=== PATIENT | female | born 1975 | race Caucasian/White ===

== ENCOUNTER → 2017-02-04 | Day surgery (SDC) | payer BC, SELFPAY ==
[~2017-02-04] MED LIST: Lactated Ringers 1,000 ML IV SCH; Propofol 200 MG/20 ML SDV IV ONE
[2017-02-04 11:16] VITALS: BP 113/68
--- NOTE | 2017-02-04 14:47 | OR ---
DATE OF OPERATION: 02/04/2017 PREOPERATIVE DIAGNOSIS: GASTROESOPHAGEAL REFLUX DISEASE WITH DYSPHAGIA. POSTOPERATIVE DIAGNOSIS: GASTROESOPHAGEAL REFLUX DISEASE WITH DYSPHAGIA. SURGEON: Cabrera Farley MD PROCEDURE: ESOPHAGOGASTRODUODENOSCOPY WITH BIOPSIES X3, MICHELLE. 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 COMPLICATIONS: None. SPECIMEN: 1. Duodenal biopsy x1. 2. Antral biopsy x1. 3. Antral MICHELLE. 4. Distal esophageal biopsy x1. FINDINGS: 1. Full-length EGD. 2. Mild hiatal hernia with reflux esophagitis, grade 1. 3. Minimal antral gastritis with duodenitis. RECOMMENDATIONS: Medical followup with Tootie Roldan PA-C. INDICATIONS: The patient has been having some reflux issues and occasional dysphagia. Tootie sent her for EGD. DESCRIPTION OF PROCEDURE: The patient was prepped and draped, placed in the left lateral decubitus position. A lubricated Olympus gastroscope was inserted over a bit, advanced the cricopharyngeus area, and easily intubated in the esophagus. Esophageal lining was benign in its entire course until its most distal portion. There was a mild sized hiatal hernia present with spontaneous reflux. There was some linear esophagitis grade 1 with no obvious ulceration or bleeding. Biopsy of that area was taken. No signs of Owusu's changes stricturing. Hernia is mild in size. The scope was easily passed into the stomach through the pylorus into the second portion of duodenum. The duodenal bulb itself has made some very mild inflammation. No evidence of ulceration or erosion. Biopsy was taken for confirmation. The scope was brought back into the stomach and retroflexed. The upper fundus and cardia were unremarkable other than easy visualization of the hernia from below. Upon straightening, the rest of the fundus was benign. There was a small amount of slight erythema into the distal antrum near the pylorus, possibly representing some gastritis change. We did do a biopsy. No other ulcerations, polyps, masses, or bleeding sites were seen. A CLOtest was obtained. Air was then suctioned. The scope was removed without complication. NELLIE/THELMA /[id number]
== END ==
LOC: CC.SDS 09:52
PROVIDERS: ATTEND Family Medicine
DX: K31.89 Other diseases of stomach and duodenum (principal); K20.8 Other esophagitis; K21.9 Gastro-esophageal reflux disease without esophagitis; K44.9 Diaphragmatic hernia without obstruction or gangrene; F41.9 Anxiety disorder, unspecified; F32.9 Major depressive disorder, single episode, unspecified; M19.90 Unspecified osteoarthritis, unspecified site; M54.9 Dorsalgia, unspecified; G89.29 Other chronic pain; E87.6 Hypokalemia; K58.9 Irritable bowel syndrome, unspecified; G43.909 Migraine, unspecified, not intractable, without status migrainosus; E03.9 Hypothyroidism, unspecified; E78.1 Pure hyperglyceridemia; E66.9 Obesity, unspecified; Z87.442 Personal history of urinary calculi; Z79.890 Hormone replacement therapy; Z79.899 Other long term (current) drug therapy; Z88.0 Allergy status to penicillin; Z88.1 Allergy status to other antibiotic agents; Z88.6 Allergy status to analgesic agent; Z90.710 Acquired absence of both cervix and uterus; Z98.890 Other specified postprocedural states; Z68.33 Body mass index [BMI] 33.0-33.9, adult
CPT/HCPCS: 43239; 87081; J2704; J7120

== ENCOUNTER 2018-02-11 18:06 | Emergency (ER) | payer BC, OTHER ==
[2018-02-11 18:14] VITALS: BP 142/71
[2018-02-11] MEDS ORDERED: Ketorolac 60 MG/2 ML SDV IM ONE (18:34)
--- NOTE | 2018-02-11 19:21 | EDM.PDOC ---
ED HPI GENERAL MEDICAL PROBLEM - General Chief Complaint: Lower Extremity Injury/Pain Stated Complaint: Knee pain Time Seen by Provider: 02/11/18 18:15 Source of Information: Reports: Patient History Limitations: Reports: No Limitations - History of Present Illness INITIAL COMMENTS - FREE TEXT/NARRATIVE: Patient presents today with complaints of muscle spasms to left leg. Had total knee replacement 2 1/2 weeks ago and had been doing fairly well. Had graduated to PT 3 times per week this week and was doing well. She states she started having terrible muscle spasms this am that start in her foot and radiate up to her thigh. She had a friend who is a therapist come and do stretching exercises on her leg. Has tried her Flexeril, Dilaudid, Tramadol, heat and ice without much relief. She called down to [facility] to the ask a nurse and they called ortho and they recommended she come to the ER. Onset: Today, Gradual Duration: Hour(s):, Waxing/Waning Location: Reports: Lower Extremity, Left Quality: Reports: Sharp Severity: Severe Improves with: Reports: None Worsens with: Reports: Movement Associated Symptoms: Reports: No Other Symptoms Treatments GAS PUMP ATTENDANT: Reports: Cold Therapy, Home Treatments, Other Medication(s) Other Treatments GAS PUMP ATTENDANT: dilaudid, flexeril, tramadol Left Leg Pain Score (Numeric/FACES): 9 - Related Data Allergies Allergy/AdvReac Type Severity Reaction Status Date / Time amoxicillin Allergy Cannot Verified 02/11/18 18:15 Remember hydrocodone bitartrate Allergy Fainting Verified 02/11/18 18:15 [From Vicoprofen] ibuprofen [From Vicoprofen] Allergy Fainting Verified 02/11/18 18:15 levofloxacin [From Levaquin] Allergy Rash Verified 02/11/18 18:15 metronidazole [From Flagyl] Allergy Cannot Verified 02/11/18 18:15 Remember Metronidazole HCl Allergy Cannot Verified 02/11/18 18:15 [From Flagyl] Remember Home Meds: Home Meds Cholecalciferol (Vitamin D3) [Vitamin D] 5,000 unit PO DAILY 09/20/13 [History] Cyclobenzaprine [Flexeril] 10 mg PO TID PRN 09/20/13 [History] Furosemide 40 mg PO BID 09/20/13 [History] clonazePAM [Clonazepam] 1 mg PO BEDTIME 09/20/13 [History] Estradiol [Estrace] 2 mg PO DAILY 02/03/17 [History] Potassium Chloride 20 meq PO DAILY 02/03/17 [History] Butalb/Acetaminophen/Caffeine [Eofzez-Nklticqz-Zmoq 50-300-40] 1 each PO ASDIRECTED PRN 01/03/18 [History] Desvenlafaxine [Desvenlafaxine ER] 50 mg PO DAILY 01/03/18 [History] HYDROmorphone [Dilaudid] 4 mg PO Q4H PRN 02/11/18 [History] traMADol [Ultram] 50 mg PO Q6H PRN 02/11/18 [History] Past Medical History Gastrointestinal History: Reports: GERD Genitourinary History: Reports: Renal Calculus 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 Musculoskeletal History: Reports: Arthritis, Back Pain, Chronic, Osteoarthritis Neurological History: Reports: Migraines - Past Surgical History HEENT Surgical History: Reports: Naso-Sinus Surgery GI Surgical History: Reports: Cholecystectomy Female Surgical History: Reports: Hysterectomy, Other (See Below) Other Female Surgeries/Procedures: lithotripsy for kidney stones Musculoskeletal Surgical History: Reports: Arthroscopic Knee, Joint Replacement , Other (See Below) Other Musculoskeletal Surgeries/Procedures:: L knee replacement Social & Family History - Tobacco Use Smoking Status *Q: Never Smoker - Living Situation & Occupation Living situation: Reports: Occupation: Employed Review of Systems - Review of Systems Review Of Systems: See Below Constitutional: Reports: Weakness. Denies: Chills, Fever Eyes: Reports: No Symptoms Ears: Reports: No Symptoms Nose: Reports: No Symptoms Mouth/Throat: Reports: No Symptoms Respiratory: Denies: Shortness of Breath, Cough Cardiovascular: Denies: Chest Pain, Palpitations, Syncope GI/Abdominal: Denies: Abdominal Pain, Nausea, Vomiting Genitourinary: Reports: No Symptoms Musculoskeletal: Reports: Leg Pain, Joint Pain, Muscle Pain Skin: Reports: Bruising Neurological: Reports: No Symptoms ED EXAM, GENERAL - Physical Exam Exam: See Below Exam Limited By: No Limitations General Appearance: Alert, WD/WN, Moderate Distress Neck: Normal Inspection, Supple, Non-Tender Respiratory/Chest: No Respiratory Distress, Lungs Clear, Normal Breath Sounds Cardiovascular: Regular Rate, Rhythm Extremities: Other (Left knee is swollen, incision is healing well. Has healing bruises to leg, new areas of darker bruising noted to calf. Pain with palpation to lateral and medial knee. ) Neurological: Alert, Oriented Course - Vital Signs Last Recorded V/S: Last Vital Signs Temp 96.9 F 02/11/18 18:07 Pulse 113 H 02/11/18 18:07 Resp 18 02/11/18 18:07 BP 142/71 H 02/11/18 18:07 Pulse Ox 100 02/11/18 18:07 - Orders/Labs/Meds Meds: Medications Discontinued Medications Generic Name Dose Route Start Last Admin Trade Name Annmarie PRN Reason Stop Dose Admin Ketorolac Tromethamine 60 mg 02/11/18 18:34 02/11/18 18:40 Toradol IM 02/11/18 18:35 60 mg ONETIME ONE Administration Orphenadrine Citrate 60 mg 02/11/18 18:35 02/11/18 18:40 Norflex IM 02/11/18 18:36 60 mg NOW ONE Administration - Re-Assessments/Exams Free Text/Narrative Re-Assessment/Exam: 02/11/18 contacted [facility] and spoke with Dr. Campbell. He recommended to ice or heat and elevate. Rest knee, feels she may have been overdid it yesterday. Should expect to improve over the next day or 2 with her current meds and rest. 1935- Is doing better, still has some pain but more tolerable now. Departure - Departure Time of Disposition: 19:19 Disposition: Home, Self-Care 01 Condition: Good Clinical Impression: Left knee pain Qualifiers: Chronicity: acute Qualified Code(s): M25.562 - Pain in left knee S/P total knee replacement Qualifiers: Laterality: left Qualified Code(s): Z96.652 - Presence of left artificial knee joint - Discharge Information *PRESCRIPTION DRUG MONITORING PROGRAM REVIEWED*: No *COPY OF PRESCRIPTION DRUG MONITORING REPORT IN PATIENT HANNAH: No Referrals: Tootie Roldan PA [Primary Care Provider] - Forms: ED Department Discharge Additional Instructions: 1. Rest knee 2. Elevate 3. Ice or heat for discomfort 4. Continue Flexeril 5. Dilaudid for pain 6. Contact Dr. Foster's office on Tuesday for ongoing pain
== END 2018-02-11 19:40 | disposition home or self-care (01) ==
LOC: CC.ED 18:06
DX: M25.562 Pain in left knee (principal); Z96.652 Presence of left artificial knee joint; Z88.1 Allergy status to other antibiotic agents; Z79.899 Other long term (current) drug therapy
CPT/HCPCS: 96372; 99283; J1885; J2360

== ENCOUNTER 2018-06-16 10:37 | Emergency (ER) | payer BC, OTHER, SELFPAY ==
[2018-06-16] MEDS ORDERED: Sodium Chloride 0.9% 1,000 ML IV ONE (10:59)
[2018-06-16] MEDS ORDERED: Ketorolac 30 MG/ML SDV IVPUSH ONE (10:59)
[2018-06-16] MEDS ORDERED: Ondansetron 4 MG/2 ML SDV IVPUSH ONE (11:00)
--- NOTE | 2018-06-16 11:05 | EDM.PDOC ---
ED HPI GENERAL MEDICAL PROBLEM - General Time Seen by Provider: 06/16/18 10:55 Source of Information: Reports: Patient, Old Records - History of Present Illness INITIAL COMMENTS - FREE TEXT/NARRATIVE: Malu is a 43 year old female who presents to the clinic with c/o right flank pain. She was seen in the clinic 06/12/2017 and found to have 2.2 mm kidney stone. Reports she was given Flomax and has been using Tramadol for pain. Reports she has been uncomfortable the past week but pain worsened significantly about 0730 this morning. Reports pain had previously been intermittent but is now constant sharp pain that radiates around to her abdomen. Rates pain 10/10. She is tearful at time of presentation. Reports she is also nauseated. Has not vomited as of yet. Denies any fever, chills, dysuria , frequency, urgency. Has not noticed any gross hematuria. Right Flank Pain Score (Numeric/FACES): 10 - Related Data Allergies Allergy/AdvReac Type Severity Reaction Status Date / Time amoxicillin Allergy Cannot Verified 06/16/18 10:53 Remember hydrocodone bitartrate Allergy Fainting Verified 06/16/18 10:53 [From Vicoprofen] ibuprofen [From Vicoprofen] Allergy Fainting Verified 06/16/18 10:53 levofloxacin [From Levaquin] Allergy Rash Verified 06/16/18 10:53 metronidazole [From Flagyl] Allergy Cannot Verified 06/16/18 10:53 Remember Metronidazole HCl Allergy Cannot Verified 06/16/18 10:53 [From Flagyl] Remember Home Meds: Home Meds Cholecalciferol (Vitamin D3) [Vitamin D] 5,000 unit PO DAILY 09/20/13 [History] Cyclobenzaprine [Flexeril] 10 mg PO TID PRN 09/20/13 [History] Furosemide 40 mg PO BID 09/20/13 [History] clonazePAM [Clonazepam] 1 mg PO BEDTIME 09/20/13 [History] Estradiol [Estrace] 2 mg PO DAILY 02/03/17 [History] Potassium Chloride 20 meq PO DAILY 02/03/17 [History] Butalb/Acetaminophen/Caffeine [Evqmba-Dgemwmus-Gevv 50-300-40] 1 each PO ASDIRECTED PRN 01/03/18 [History] Desvenlafaxine [Desvenlafaxine ER] 50 mg PO DAILY 01/03/18 [History] HYDROmorphone [Dilaudid] 4 mg PO Q4H PRN 02/11/18 [History] traMADol [Ultram] 50 mg PO Q6H PRN 02/11/18 [History] Past Medical History Gastrointestinal History: Reports: GERD Genitourinary History: Reports: Renal Calculus 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 Musculoskeletal History: Reports: Arthritis, Back Pain, Chronic, Osteoarthritis Neurological History: Reports: Migraines - Past Surgical History HEENT Surgical History: Reports: Naso-Sinus Surgery GI Surgical History: Reports: Cholecystectomy Female Surgical History: Reports: Hysterectomy, Other (See Below) Other Female Surgeries/Procedures: lithotripsy for kidney stones Musculoskeletal Surgical History: Reports: Arthroscopic Knee, Joint Replacement , Other (See Below) Other Musculoskeletal Surgeries/Procedures:: L knee replacement Social & Family History - Living Situation & Occupation Living situation: Reports: Occupation: Employed ED ROS GENERAL - Review of Systems Review Of Systems: See Below Constitutional: Reports: Decreased Appetite. Denies: Fever, Chills Respiratory: Reports: No Symptoms. Denies: Shortness of Breath, Cough Cardiovascular: Reports: No Symptoms. Denies: Chest Pain, Dyspnea on Exertion Endocrine: Reports: No Symptoms GI/Abdominal: Reports: Abdominal Pain, Nausea. Denies: Diarrhea, Vomiting : Reports: Flank Pain (right). Denies: Dysuria, Frequency, Hematuria, Incontinence, Urgency Musculoskeletal: Reports: No Symptoms Skin: Reports: No Symptoms Neurological: Reports: No Symptoms ED EXAM, RENAL/ - Physical Exam Exam: See Below Exam Limited By: No Limitations General Appearance: Alert, WD/WN, Moderate Distress Head: Atraumatic, Normocephalic Neck: Normal Inspection, Supple, Non-Tender, Full Range of Motion Respiratory/Chest: No Respiratory Distress, Lungs Clear, Normal Breath Sounds, No Accessory Muscle Use, Chest Non-Tender Cardiovascular: Normal Peripheral Pulses, Regular Rate, Rhythm, No Edema, No Gallop, No JVD, No Murmur, No Rub GI/Abdominal: Normal Bowel Sounds, Soft, Tender (right suprapubic area). No: Guarding, Rigid, Rebound Back Exam: Normal Inspection, Full Range of Motion, CVA Tenderness (R) Extremities: Normal Inspection, Normal Range of Motion, Non-Tender, Normal Capillary Refill, No Pedal Edema Neurological: Alert, Oriented, CN II-XII Intact, Normal Cognition, Normal Gait, Normal Reflexes, No Motor/Sensory Deficits Psychiatric: Tearful Course - Vital Signs Last Recorded V/S: Last Vital Signs Temp 97.5 F 06/16/18 11:47 Pulse 69 06/16/18 11:47 Resp 20 06/16/18 11:47 BP 145/83 H 06/16/18 11:47 Pulse Ox 100 06/16/18 11:47 - Orders/Labs/Meds Labs: Laboratory Tests 06/16/18 06/16/18 06/16/18 Range/Units 11:15 11:15 11:43 WBC 5.7 (5.0-10.0) 10^3/uL RBC 4.48 (4.00-5.50) 10^6/uL Hgb 12.6 (12.0-16.0) g/dL Hct 39.3 (37.0-47.0) % MCV 87.7 (82.0-94.0) fL MCH 28.1 (27.0-32.0) pg MCHC 32.1 L (33.0-38.0) g/dL RDW Coeff of Anupama 15.1 H (11.0-15.0) % Plt Count 260 (150-400) 10^3/uL Neut % (Auto) 48.0 (35-85) % Lymph % (Auto) 43.2 (10-55) % [place] % (Auto) 7.1 (0-16) % Eos % (Auto) 1.2 (0-5) % Baso % (Auto) 0.5 (0-3) % Neut # (Auto) 2.75 (1.80-7.00) 10^3/uL Lymph # (Auto) 2.48 (1.00-4.80) 10^3/uL [place] # (Auto) 0.41 (0.00-0.80) 10^3/uL Eos # (Auto) 0.07 (0.00-0.45) 10^3/uL Baso # (Auto) 0.03 10^3/uL Sodium 142 (136-145) mEq/L Potassium 3.4 L D (3.5-5.0) mEq/L Chloride 104 (98-106) mEq/L Carbon Dioxide 30 (21-32) mmol/L BUN 11 (7-18) mg/dL Creatinine 0.6 (0.6-1.0) mg/dL Est Cr Clr Drug Dosing TNP Estimated GFR (MDRD) > 60 (>=60) mL/min Glucose 107 H (75-99) mg/dL Calcium 8.3 L (8.4-10.1) mg/dL C-Reactive Protein 0.9 H (0.2-0.8) mg/dL Urine Color Dark yellow (YELLOW) Urine Appearance Cloudy (CLEAR) Urine pH 6.0 (4.5-8.0) Ur Specific [place] 1.025 H (1.003-1.020) Urine Protein Negative (NEGATIVE) mg/dL Urine Glucose (UA) Negative (NEGATIVE) mg/dL Urine Ketones Negative (NEGATIVE) mg/dL Urine Occult Blood Large H (NEGATIVE) Urine Nitrite Negative (NEGATIVE) Urine Bilirubin Negative (NEGATIVE) Urine Urobilinogen 0.2 (0.2-1.0) EU/dL Ur Leukocyte Esterase Negative (NEGATIVE) Urine RBC 50-75 H (0-5) /HPF Urine WBC Not seen (0-5) /HPF Urine Bacteria Occasional H (NOT SEEN) /HPF Meds: Medications Discontinued Medications Generic Name Dose Route Start Last Admin Trade Name Annmarie PRN Reason Stop Dose Admin Fentanyl 25 mcg 06/16/18 11:53 06/16/18 12:02 Sublimaze IVPUSH 06/16/18 11:54 25 mcg ONETIME ONE Administration Sodium Chloride 1,000 mls @ 999 mls/hr 06/16/18 10:59 06/16/18 11:07 Normal Saline IV 06/16/18 11:59 999 mls/hr .BOLUS ONE Administration Ketorolac Tromethamine 30 mg 06/16/18 10:59 06/16/18 11:08 Toradol IVPUSH 06/16/18 11:00 30 mg ONETIME ONE Administration Ondansetron HCl 4 mg 06/16/18 11:00 06/16/18 11:08 Zofran IVPUSH 06/16/18 11:01 4 mg Q6H ONE Administration - Re-Assessments/Exams Free Text/Narrative Re-Assessment/Exam: 06/16/18 11:53 Patient reports some improvement in pain. Continues to rate pain 6/10. Nausea improved. 06/16/18 12:25 Patient reports significant improvement in pain after fentanyl. Discussed discharge recommendations with patient. Departure - Departure Time of Disposition: 12:26 Disposition: Home, Self-Care 01 Condition: Fair Clinical Impression: Ureteric colic, Ureterolithiasis - Discharge Information *PRESCRIPTION DRUG MONITORING PROGRAM REVIEWED*: Not Applicable *COPY OF PRESCRIPTION DRUG MONITORING REPORT IN PATIENT HANNAH: Not Applicable Instructions: Kidney Stones, [id number] Referrals: Tong Langley PA-C [Physician Knockout Worker] - Forms: ED Department Discharge Additional Instructions: Flomax daily x 4 weeks Toradol every 6 hours as needed for pain. Alternate with 1000 mg Tylenol. Heat to affected area as needed for comfort Follow up with PCP if symptoms worsen or do not improve over the next few weeks
[2018-06-16 11:26] LABS: CHLORIDE,CL 104 mEq/L (98-106); SODIUM,NA 142 mEq/L (136-145)
[2018-06-16] MEDS ORDERED: fentaNYL 100 MCG/2 ML SDV IVPUSH ONE (11:53)
[2018-06-16 11:55] VITALS: BP 145/83
== END 2018-06-16 12:38 | disposition home or self-care (01) ==
LOC: CC.ED 10:37
DX: N20.1 Calculus of ureter (principal); Z88.1 Allergy status to other antibiotic agents; Z88.6 Allergy status to analgesic agent; Z88.8 Allergy status to other drugs, medicaments and biological substances; Z79.899 Other long term (current) drug therapy; K21.9 Gastro-esophageal reflux disease without esophagitis
CPT/HCPCS: 36415; 80048; 81001; 85025; 86140; 96361; 96374; 96375; 99284; J1885; J2405; J3010; J7030

== ENCOUNTER → 2019-04-06 | Day surgery (SDC) | payer BC ==
[~2019-04-06] MED LIST changes: +Lidocaine 1% 20 ML MDV ONE; +Midazolam 1 MG/ML 2 ML SDV IV ONE; +Midazolam 1 MG/ML 2 ML SDV ONE; -Propofol 200 MG/20 ML SDV IV ONE; +fentaNYL 100 MCG/2 ML SDV ONE
--- NOTE | 2019-04-06 15:25 | OR ---
DATE OF OPERATION: 04/06/2019 PREOPERATIVE DIAGNOSIS: CHRONIC SCALP LESION. POSTOPERATIVE DIAGNOSIS: CHRONIC SCALP LESION. SURGEON: Evangelista Pierce MD PROCEDURE: WIDE ELLIPTICAL INCISION OF SCALP LESION. ANESTHESIA: Local plus conscious sedation. SPECIMEN: Scalp lesion. INDICATIONS: This 44-year-old female has had a chronic scalp lesion that had two incision and drainage procedures before. It still has a tender soft spongy area around this. I could not aspirate any of this, this is not fluid containing. The patient complains that this is quite tender to touch and has not healed since the last incision and drainage. DESCRIPTION OF PROCEDURE: After adequate preparation with 2 mg of Versed IV, 1% Xylocaine was used to infiltrate an area of the scalp. An elliptical incision was made around this ill-defined area within that had been previously scarred. This elliptical incision measured 1.5 cm x 0.75 cm. This incision was carried down vertically into the subcutaneous tissue and all the tissue was taken out down to the aponeurosis fascia. There was some arterial bleeding. This was controlled by [id number] 2-0 nylon sutures in a tamponade fashion. The elliptical incision specimen was sent for pathological evaluation. BPGavin/THELMA /[id number]
[2019-04-06 15:54] VITALS: BP 114/67; PULSE 69
== END ==
LOC: CC.SDS 13:03
PROVIDERS: ATTEND Surgery
DX: L28.0 Lichen simplex chronicus (principal); L91.0 Hypertrophic scar; Z79.899 Other long term (current) drug therapy
CPT/HCPCS: 11422; 36415; 82306; J2250; J7120

== ENCOUNTER 2019-04-15 05:42 | Emergency (ER) | payer BC, OTHER ==
[2019-04-15 05:50] VITALS: BP 128/79; PULSE 80
[2019-04-15] MEDS ORDERED: Ketorolac 30 MG/ML SDV IVPUSH ONE (06:04)
[2019-04-15] MEDS ORDERED: Metoclopramide 10 MG/2 ML SDV IVPUSH ONE (06:06)
[2019-04-15] MEDS ORDERED: diphenhydrAMINE 50 MG/ML SDV IVPUSH ONE (06:06)
--- NOTE | 2019-04-15 06:13 | EDM.PDOC ---
ED HPI GENERAL MEDICAL PROBLEM - General Chief Complaint: General Stated Complaint: migraine Time Seen by Provider: 04/15/19 05:55 Source of Information: Reports: Patient History Limitations: Reports: No Limitations - History of Present Illness INITIAL COMMENTS - FREE TEXT/NARRATIVE: in with c/o left side typical migraine rossi, has some nausea, no vomiting, light does make the rossi worse, no ear, nose or throat sx, no neck/back pain or stiffness, no fever or chills, no cp or sob, no palpitations or irregular heart beat, no calf pain, redness or swelling, no abd pain Onset: Gradual, Other (tuesday) Duration: Day(s): Location: Reports: Head Quality: Reports: Ache Severity: Moderate Improves with: Reports: None Worsens with: Reports: None Associated Symptoms: Reports: Headaches, Nausea/Vomiting. 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: Reports: Other (see below) Left Headache Pain Score (Numeric/FACES): 10 - Related Data Allergies Allergy/AdvReac Type Severity Reaction Status Date / Time amoxicillin Allergy Diarrhea Verified 04/15/19 05:58 hydrocodone bitartrate Allergy Fainting Verified 04/15/19 05:58 [From Vicoprofen] ibuprofen [From Vicoprofen] Allergy Fainting Verified 04/15/19 05:58 levofloxacin [From Levaquin] Allergy Anaphylactic Verified 04/15/19 05:58 Shock metronidazole [From Flagyl] Allergy Cannot Verified 04/15/19 05:58 Remember Metronidazole HCl Allergy Cannot Verified 04/15/19 05:58 [From Flagyl] Remember Home Meds: Home Meds Cholecalciferol (Vitamin D3) [Vitamin D] 5,000 unit PO DAILY 09/20/13 [History] Cyclobenzaprine [Flexeril] 10 mg PO TID PRN 09/20/13 [History] Furosemide 40 mg PO BID 09/20/13 [History] clonazePAM [Clonazepam] 1 mg PO BEDTIME 09/20/13 [History] Estradiol [Estrace] 2 mg PO DAILY 02/03/17 [History] Potassium Chloride 20 meq PO DAILY 02/03/17 [History] Butalb/Acetaminophen/Caffeine [Yabuyb-Lhrijftg-Sdts 50-300-40] 1 each PO ASDIRECTED PRN 01/03/18 [History] Desvenlafaxine [Desvenlafaxine ER] 50 mg PO DAILY 01/03/18 [History] Ketorolac [Toradol] 10 mg PO Q6H PRN #20 tab 06/16/18 [Rx] Ondansetron [Zofran] 8 mg PO Q6H PRN #20 tab 06/16/18 [Rx] DULoxetine [Cymbalta] 60 mg PO DAILY 04/06/19 [History] Past Medical History Gastrointestinal History: Reports: GERD Genitourinary History: Reports: Renal Calculus 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 Musculoskeletal History: Reports: Arthritis, Back Pain, Chronic, Osteoarthritis Neurological History: Reports: Migraines - Past Surgical History HEENT Surgical History: Reports: Naso-Sinus Surgery GI Surgical History: Reports: Cholecystectomy Female Surgical History: Reports: Hysterectomy, Other (See Below) Other Female Surgeries/Procedures: lithotripsy for kidney stones Musculoskeletal Surgical History: Reports: Arthroscopic Knee, Joint Replacement , Other (See Below) Other Musculoskeletal Surgeries/Procedures:: L knee replacement Social & Family History - Tobacco Use Smoking Status *Q: Never Smoker - Caffeine Use Caffeine Use: Reports: Soda - Recreational Drug Use Recreational Drug Use: No - Living Situation & Occupation Living situation: Reports: Occupation: Employed ED ROS GENERAL - Review of Systems Review Of Systems: See Below Constitutional: Reports: No Symptoms. Denies: Fever, Chills HEENT: Reports: No Symptoms. Denies: Ear Pain, Nose Pain, Throat Pain Respiratory: Reports: No Symptoms. Denies: Shortness of Breath, Cough Cardiovascular: Reports: No Symptoms. Denies: Chest Pain, Lightheadedness, Palpitations, Syncope GI/Abdominal: Reports: Nausea. Denies: Abdominal Pain, Vomiting : Reports: No Symptoms Musculoskeletal: Reports: No Symptoms. Denies: Neck Pain, Back Pain Skin: Reports: No Symptoms. Denies: Rash, Erythema Neurological: Reports: Headache. Denies: Confusion, Dizziness, Syncope, Difficulty Walking, Change in Speech, Gait Disturbance Psychiatric: Reports: No Symptoms ED EXAM, GENERAL - Physical Exam Exam: See Below Exam Limited By: No Limitations General Appearance: Alert, WD/WN, No Apparent Distress Eye Exam: Bilateral Eye: EOMI Ears: Normal External Exam, Normal Canal, Hearing Grossly Normal, Normal TMs Ear Exam: Bilateral Ear: Auricle Normal, Canal Normal, TM normal Nose: Normal Inspection, Normal Mucosa Throat/Mouth: Normal Inspection, Normal Lips, Normal Oropharynx, Normal Voice, No Airway Compromise Head: Atraumatic, Normocephalic Neck: Normal Inspection, Supple, Non-Tender, Full Range of Motion Respiratory/Chest: No Respiratory Distress, Lungs Clear, Normal Breath Sounds Cardiovascular: Normal Peripheral Pulses, Regular Rate, Rhythm, No Murmur Peripheral Pulses: 2+: Radial (L) Back Exam: Normal Inspection, Full Range of Motion Extremities: Normal Inspection, Normal Range of Motion, Non-Tender, Normal Capillary Refill Neurological: Alert, Oriented, CN II-XII Intact, Normal Cognition, Normal Gait, No Motor/Sensory Deficits Psychiatric: Normal Affect, Normal Mood Skin Exam: Warm, Dry, Intact, Normal Color Course - Vital Signs Text/Narrative:: the pt was evaluated in the ED, the pt has her typical migraine ROSSI, no changes from normal, the pt was given a typical migraine cocktail with relief of her sx , the pt dc to f/u with pcp this week, and advised to return to ER sooner if worse or problems Last Recorded V/S: Last Vital Signs Temp 35.6 C 04/15/19 05:45 Pulse 80 04/15/19 05:45 Resp 18 04/15/19 05:45 BP 128/79 04/15/19 05:45 Pulse Ox - Orders/Labs/Meds Meds: Medications Discontinued Medications Generic Name Dose Route Start Last Admin Trade Name Freq PRN Reason Stop Dose Admin Diphenhydramine HCl 25 mg 04/15/19 06:06 04/15/19 06:21 Benadryl IVPUSH 04/15/19 06:07 25 mg ONETIME ONE Administration Ketorolac Tromethamine 30 mg 04/15/19 06:04 04/15/19 06:20 Toradol IVPUSH 04/15/19 06:05 30 mg ONETIME ONE Administration Metoclopramide HCl 10 mg 04/15/19 06:06 04/15/19 06:25 Reglan IVPUSH 04/15/19 06:07 10 mg ONETIME ONE Administration Departure - Departure Time of Disposition: 06:43 Disposition: Home, Self-Care 01 Condition: Good Clinical Impression: Migraine headache - Discharge Information *PRESCRIPTION DRUG MONITORING PROGRAM REVIEWED*: Not Applicable *COPY OF PRESCRIPTION DRUG MONITORING REPORT IN PATIENT HANNAH: Not Applicable Instructions: Migraine Headache, [id number] Referrals: Tootie Roldan PA [Primary Care Provider] - Forms: ED Department Discharge Additional Instructions: rest increase fluids follow up with your family doctor this week, call Tuesday am for an appointment time return to the ER sooner if worse or problems - Problem List & Annotations (1) Migraine headache SNOMED Code(s): 67680622 Code(s): G43.909 - MIGRAINE, UNSP, NOT INTRACTABLE, WITHOUT STATUS MIGRAINOSUS Status: Acute Priority: Medium Current Visit: Yes Qualifiers: Migraine type: without aura Status migrainosus presence: without status migrainosus Intractability: not intractable Qualified Code(s): G43.009 - Migraine without aura, not intractable, without status migrainosus - Problem List Review Problem List Initiated/Reviewed/Updated: Yes - Assessment/Plan Plan: as above
== END 2019-04-15 06:50 | disposition home or self-care (01) ==
LOC: CC.ED 05:42
DX: G43.909 Migraine, unspecified, not intractable, without status migrainosus (principal); Z88.0 Allergy status to penicillin; Z88.5 Allergy status to narcotic agent; Z88.6 Allergy status to analgesic agent; Z88.1 Allergy status to other antibiotic agents
CPT/HCPCS: 96374; 96375; 99283; J1200; J1885; J2765

== ENCOUNTER 2020-02-08 10:51 | Emergency (ER) | payer BC ==
[2020-02-08 11:31] LABS: CHLORIDE,CL 104 mEq/L (98-106); SODIUM,NA 143 mEq/L (136-145)
[2020-02-08] MEDS: Lactated Ringers 1,000 ML IV ONE (11:35)
[2020-02-08] MEDS: Potassium Chloride 20 MEQ in Premix Bag 1 BAG IV ONE (12:21)
[2020-02-08] MEDS: Lactated Ringers 1,000 ML IV SCH (12:44)
--- NOTE | 2020-02-08 14:18 | EDM.PDOC ---
ED HPI GENERAL MEDICAL PROBLEM - General Chief Complaint: General Stated Complaint: COVID, diarrhea, nausea, weakness Time Seen by Provider: 02/08/20 11:15 Source of Information: Reports: Patient History Limitations: Reports: No Limitations - History of Present Illness INITIAL COMMENTS - FREE TEXT/NARRATIVE: Malu is a 44 yo female who presents to the ED with c/o dehydration and weakness. She tested positive for Covid earlier this week and reports for about the past week she has had nausea, vomiting, and diarrhea. She reports she feels very weak. Is very tearful at time of exam. Reports she has not been able to eat or drink much the last 24 hours. Is requesting IV fluids. She reports she has headache and generalized malaise. Has not had recent fever. Denies any respira tory symptoms. Duration: Constant Location: Reports: Abdomen Associated Symptoms: Reports: Headaches, Loss of Appetite, Malaise, Nausea/Vomiting, Weakness. Denies: Confusion, Chest Pain, Cough, cough w sputum, Diaphoresis, Fever/Chills, Rash, Seizure, Shortness of Breath, Syncope Back Pain Score (Numeric/FACES): 7 - Related Data Allergies Allergy/AdvReac Type Severity Reaction Status Date / Time hydrocodone bitartrate Allergy Fainting Verified 02/08/20 10:52 [From Vicoprofen] ibuprofen [From Vicoprofen] Allergy Fainting Verified 02/08/20 10:52 levofloxacin [From Levaquin] Allergy Anaphylactic Verified 02/08/20 10:52 Shock metronidazole [From Flagyl] Allergy Cannot Verified 02/08/20 10:52 Remember Metronidazole HCl Allergy Cannot Verified 02/08/20 10:52 [From Flagyl] Remember amoxicillin AdvReac Diarrhea Verified 02/11/20 11:03 Home Meds: Home Meds Cholecalciferol (Vitamin D3) [Vitamin D] 5,000 unit PO DAILY 09/20/13 [History] Cyclobenzaprine [Flexeril] 10 mg PO TID PRN 09/20/13 [History] Furosemide 40 mg PO BID 09/20/13 [History] clonazePAM [Clonazepam] 1 mg PO BEDTIME 09/20/13 [History] Estradiol [Estrace] 2 mg PO DAILY 02/03/17 [History] Potassium Chloride 20 meq PO DAILY 02/03/17 [History] Butalb/Acetaminophen/Caffeine [Xdaudv-Johdqppx-Mfzf 50-300-40] 1 each PO ASDIRECTED PRN 01/03/18 [History] Desvenlafaxine [Desvenlafaxine ER] 50 mg PO DAILY 01/03/18 [History] Ketorolac [Toradol] 10 mg PO Q6H PRN #20 tab 06/16/18 [Rx] DULoxetine [Cymbalta] 60 mg PO DAILY 04/06/19 [History] Past Medical History Gastrointestinal History: Reports: GERD Genitourinary History: Reports: Renal Calculus 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 Musculoskeletal History: Reports: Arthritis, Back Pain, Chronic, Osteoarthritis Neurological History: Reports: Migraines - Past Surgical History HEENT Surgical History: Reports: Naso-Sinus Surgery GI Surgical History: Reports: Cholecystectomy Female Surgical History: Reports: Hysterectomy, Other (See Below) Other Female Surgeries/Procedures: lithotripsy for kidney stones Musculoskeletal Surgical History: Reports: Arthroscopic Knee, Joint Replacement, Other (See Below) Other Musculoskeletal Surgeries/Procedures:: L knee replacement Social & Family History - Family History Family Medical History: Noncontributory - Tobacco Use Smoking Status *Q: Never Smoker - Caffeine Use Caffeine Use: Reports: Soda - Recreational Drug Use Recreational Drug Use: No - Living Situation & Occupation Living situation: Reports: Occupation: Employed ED ROS GENERAL - Review of Systems Review Of Systems: Comprehensive ROS is negative, except as noted in HPI. ED EXAM, GENERAL - Physical Exam Exam: See Below Exam Limited By: No Limitations General Appearance: Alert, WD/WN, Anxious Eye Exam: Bilateral Eye: EOMI, PERRL Ears: Normal External Exam, Normal Canal, Hearing Grossly Normal, Normal TMs Nose: Normal Inspection, Normal Mucosa, No Blood Throat/Mouth: Other (dry mucous membranes) Head: Atraumatic, Normocephalic Neck: Normal Inspection, Supple, Non-Tender, Full Range of Motion Respiratory/Chest: No Respiratory Distress, Lungs Clear, Normal Breath Sounds, No Accessory Muscle Use, Chest Non-Tender Cardiovascular: Normal Peripheral Pulses, Regular Rate, Rhythm, No Edema, No Gallop, No JVD, No Murmur, No Rub GI/Abdominal: Normal Bowel Sounds, Soft, Non-Tender, No Organomegaly, No Distention, No Abnormal Bruit, No Mass Back Exam: Normal Inspection, Full Range of Motion. No: CVA Tenderness (L), CVA Tenderness (R) Extremities: Normal Inspection, Normal Range of Motion, Non-Tender, Normal Capillary Refill, No Pedal Edema Neurological: Alert, Oriented, CN II-XII Intact, Normal Cognition, Normal Gait, Normal Reflexes, No Motor/Sensory Deficits Psychiatric: Anxious, Tearful Skin Exam: Warm, Dry, Intact, Normal Color, No Rash Lymphatic: No Adenopathy Course - Vital Signs Last Recorded V/S: Last Vital Signs Temp 98.6 F 02/08/20 10:55 Pulse 71 02/08/20 14:28 Resp 19 02/08/20 14:28 BP 125/81 02/08/20 14:28 Pulse Ox 100 02/08/20 14:28 - Orders/Labs/Meds Labs: Laboratory Tests 02/08/20 02/08/20 02/08/20 Range/Units 11:08 11:15 11:15 WBC 4.3 L (5.0-10.0) 10^3/uL RBC 5.09 (4.00-5.50) 10^6/uL Hgb 14.7 (12.0-16.0) g/dL Hct 44.2 (37.0-47.0) % MCV 86.8 (82.0-94.0) fL MCH 28.9 (27.0-32.0) pg MCHC 33.3 (33.0-38.0) g/dL RDW Coeff of Anupama 12.9 (11.0-15.0) % Plt Count 188 (150-400) 10^3/uL Neut % (Auto) 48.6 (35-85) % Lymph % (Auto) 43.2 (10-55) % Harrison % (Auto) 8.2 (0-16) % Eos % (Auto) 0 (0-5) % Baso % (Auto) 0 (0-3) % Neut # (Auto) 2.08 (1.80-7.00) 10^3/uL Lymph # (Auto) 1.85 (1.00-4.80) 10^3/uL Harrison # (Auto) 0.35 (0.00-0.80) 10^3/uL Eos # (Auto) 0.00 (0.00-0.45) 10^3/uL Baso # (Auto) 0.00 10^3/uL Sodium 143 (136-145) mEq/L Potassium 3.1 L (3.5-5.0) mEq/L Chloride 104 (98-106) mEq/L Carbon Dioxide 25 (21-32) mmol/L BUN 9 (7-18) mg/dL Creatinine 0.7 (0.6-1.0) mg/dL Est Cr Clr Drug Dosing 99.73 mL/min Estimated GFR (MDRD) > 60 (>=60) mL/min Glucose 125 H (75-99) mg/dL Calcium 8.6 (8.4-10.1) mg/dL Total Bilirubin 0.4 (0.0-1.0) mg/dL AST 33 (15-37) U/L ALT 50 (12-78) U/L Alkaline Phosphatase 104 (46-116) U/L Lactate Dehydrogenase 185 (100-190) U/L Creatine Kinase 64 (21-215) U/L C-Reactive Protein 4.1 H (0.2-0.8) mg/dL Total Protein 7.5 (6.4-8.2) g/dL Albumin 3.2 L (3.4-5.0) g/dL Urine Color Yellow (YELLOW) Urine Appearance Clear (CLEAR) Urine pH 7.0 (4.5-8.0) Ur Specific [place] 1.025 H (1.003-1.020) Urine Protein Trace H (NEGATIVE) mg/dL Urine Glucose (UA) Negative (NEGATIVE) mg/dL Urine Ketones 80 H (NEGATIVE) mg/dL Urine Occult Blood Moderate H (NEGATIVE) Urine Nitrite Negative (NEGATIVE) Urine Bilirubin Negative (NEGATIVE) Urine Urobilinogen 0.2 (0.2-1.0) EU/dL Ur Leukocyte Esterase Trace H (NEGATIVE) Urine RBC 5-10 H (0-5) /HPF Urine WBC 5-10 H (0-5) /HPF Ur Epithelial Cells Moderate H (NOT SEEN) /HPF Urine Bacteria Moderate H (NOT SEEN) /HPF Urine Mucus Few H (NOT SEEN) /HPF Meds: Medications Discontinued Medications Generic Name Dose Route Start Last Admin Trade Name Freq PRN Reason Stop Dose Admin Lactated Ringer's 1,000 mls @ 999 mls/hr 02/08/20 11:23 02/08/20 11:35 Ringers, Lactated IV 02/08/20 12:23 999 mls/hr .BOLUS ONE Administration Lactated Ringer's 1,000 mls @ 999 mls/hr 02/08/20 12:30 02/08/20 12:44 Ringers, Lactated IV 999 mls/hr ASDIRECTED MIKA Administration Potassium Chloride 20 meq/ 100 mls @ 50 mls/hr 02/08/20 12:11 02/08/20 12:21 Premix IV 02/08/20 14:10 50 mls/hr ONETIME ONE Administration Departure - Departure Time of Disposition: 14:15 Disposition: Home, Self-Care 01 Condition: Fair Clinical Impression: COVID-19, Dehydration - Discharge Information *PRESCRIPTION DRUG MONITORING PROGRAM REVIEWED*: Not Applicable *COPY OF PRESCRIPTION DRUG MONITORING REPORT IN PATIENT HANNAH: Not Applicable Instructions: COVID-19 Frequently Asked Questions, COVID-19, Dehydration, Adult, [id number] Referrals: Velia Calabrese, [employer] [Primary Care Provider] - Forms: ED Department Discharge Additional Instructions: - Try to drink fluids as able. Recommend low sugar drinks with electrolytes ie. Propel, Pedialyte, etc. - Continue to quarantine as directed by [facility] - Rest and take it easy - Notify PCP of any worsening of symptoms or any ongoing concerns - Return to ED for emergent needs Sepsis Event Note (ED) - Evaluation Sepsis Screening Result: No Definite Risk - Problem List & Annotations (1) COVID-19 SNOMED Code(s): 234558962 Code(s): U07.1 - COVID-19 Status: Acute (2) Dehydration SNOMED Code(s): 93760490 Code(s): E86.0 - DEHYDRATION Status: Acute - Assessment/Plan Assessment:: Covid 19 Dehydration Plan: Patient with know Covid 19 presented with 1 wk history of N/V/D. Unable to keep liquids/solids down. Labs stable except potassium 3.1. Patient requests IVF. Was given 2 L LR and 20 meq KCL. Did have some improvement in symptoms prior to discharge. Recommend she continue to quarantine as directed by [facility]. REst and take it easy. Fluids as tolerated. Follow up for recheck if symptoms worsen or do not improve. Return to ED for emergent needs.
[2020-02-08 14:28] VITALS: BP 125/81; PULSE 71
== END 2020-02-08 14:50 | disposition home or self-care (01) ==
LOC: CC.ED 10:51
DX: U07.1 COVID-19 (principal); E86.0 Dehydration; Z88.1 Allergy status to other antibiotic agents; Z88.5 Allergy status to narcotic agent; Z88.6 Allergy status to analgesic agent; Z90.49 Acquired absence of other specified parts of digestive tract; Z90.710 Acquired absence of both cervix and uterus
CPT/HCPCS: 36415; 80053; 81001; 82550; 83615; 85025; 86140; 87086; 96361; 96365; 96366; 99284-25; J3480; J7120

== ENCOUNTER 2020-06-17 13:46 | Observation (INO) | payer BC ==
[2020-06-17] MEDS ORDERED: Morphine 4 MG/ML VIAL IVPUSH ONE ×2 (14:18→14:31)
[2020-06-17] MEDS ORDERED: Ondansetron 8 MG in Sodium Chloride 0.9% 50 ML IV STA (14:19)
[2020-06-17] MEDS ORDERED: Sodium Chloride 0.9% 1,000 ML IV SCH (14:30)
[2020-06-17] MEDS ORDERED: Ondansetron 4 MG/2 ML SDV IVPUSH STA (14:36)
[2020-06-17] MEDS: Sodium Chloride 0.9% 1,000 ML IV SCH ×2 (14:46→19:47)
--- NOTE | 2020-06-17 14:52 | EDM.PDOC ---
ED HPI GENERAL MEDICAL PROBLEM - General Chief Complaint: General Stated Complaint: SEVERE ABD/BACK PAIN Time Seen by Provider: 06/17/20 14:32 Source of Information: Reports: Patient History Limitations: Reports: No Limitations - History of Present Illness INITIAL COMMENTS - FREE TEXT/NARRATIVE: Malu is a 45 yo female who presents to the ED via private vehicle with complaints of flank pain and right lower quadrant pain since Tuesday. States she has a history of kidney stones but has never had pain like this before. States the pain has been getting worse since Tuesday and today feels it is becoming intolerable. Diarrhea presented today. No bloody stools. Admits to feeling nauseated but no vomiting. States she does have her appendix as well still. No chance of , prior hysterectomy. - Related Data Allergies Allergy/AdvReac Type Severity Reaction Status Date / Time hydrocodone bitartrate Allergy Fainting Verified 02/15/20 10:06 [From Vicoprofen] ibuprofen [From Vicoprofen] Allergy Fainting Verified 02/15/20 10:06 levofloxacin [From Levaquin] Allergy Anaphylactic Verified 02/15/20 10:06 Shock metronidazole [From Flagyl] Allergy Cannot Verified 02/15/20 10:06 Remember Metronidazole HCl Allergy Cannot Verified 02/15/20 10:06 [From Flagyl] Remember amoxicillin AdvReac Diarrhea Verified 02/15/20 10:06 Home Meds: Home Meds Cholecalciferol (Vitamin D3) [Vitamin D] 5,000 unit PO DAILY 09/20/13 [History] Cyclobenzaprine [Flexeril] 10 mg PO TID PRN 09/20/13 [History] Furosemide 40 mg PO BID 09/20/13 [History] clonazePAM [Clonazepam] 1 mg PO BEDTIME 09/20/13 [History] Estradiol [Estrace] 2 mg PO DAILY 02/03/17 [History] Potassium Chloride 20 meq PO DAILY 02/03/17 [History] Butalb/Acetaminophen/Caffeine [Mulitb-Lksfulws-Ksfv 50-300-40] 1 each PO ASDIRECTED PRN 01/03/18 [History] Desvenlafaxine [Desvenlafaxine ER] 50 mg PO DAILY 01/03/18 [History] Ketorolac [Toradol] 10 mg PO Q6H PRN #20 tab 01/18/19 [Rx] DULoxetine [Cymbalta] 60 mg PO DAILY 04/06/19 [History] Ondansetron [Ondansetron ODT] 4 mg SL Q6HR 02/15/20 [History] Past Medical History Gastrointestinal History: Reports: GERD Genitourinary History: Reports: Renal Calculus [employer] History: Reports: Endometriosis Musculoskeletal History: Reports: Arthritis, Back Pain, Chronic, Osteoarthritis Neurological History: Reports: Migraines - Past Surgical History HEENT Surgical History: Reports: Naso-Sinus Surgery GI Surgical History: Reports: Cholecystectomy Female Surgical History: Reports: Hysterectomy, Other (See Below) Other Female Surgeries/Procedures: lithotripsy for kidney stones Musculoskeletal Surgical History: Reports: Arthroscopic Knee, Joint Replacement, Other (See Below) Other Musculoskeletal Surgeries/Procedures:: L knee replacement Social & Family History - Family History Family Medical History: No Pertinent Family History - Caffeine Use Caffeine Use: Reports: Soda - Living Situation & Occupation Living situation: Reports: Occupation: Employed ED ROS GENERAL - Review of Systems Review Of Systems: See Below Constitutional: Reports: Chills, Decreased Appetite. Denies: Fever HEENT: Reports: No Symptoms Respiratory: Reports: No Symptoms Cardiovascular: Reports: No Symptoms GI/Abdominal: Reports: Abdominal Pain, Diarrhea, Nausea. Denies: Bloody Stool, Constipation, Hematochezia, Melena, Vomiting : Reports: Urgency. Denies: Dysuria, Urinary Retention Musculoskeletal: Reports: Back Pain Skin: Reports: No Symptoms Neurological: Reports: No Symptoms ED EXAM, GENERAL - Physical Exam Exam: See Below Exam Limited By: No Limitations General Appearance: Alert, Moderate Distress Ears: Normal External Exam, Normal Canal, Hearing Grossly Normal, Normal TMs Nose: Normal Inspection Throat/Mouth: Normal Inspection, Normal Lips, Normal Voice, No Airway Compromise Head: Atraumatic, Normocephalic Neck: Normal Inspection, Supple Respiratory/Chest: No Respiratory Distress, Lungs Clear, Normal Breath Sounds, No Accessory Muscle Use Cardiovascular: Regular Rate, Rhythm, No Edema, No Murmur GI/Abdominal: Soft, No Organomegaly, No Distention, Tender (RLQ, pain intensifies with palpation). No: Guarding Back Exam: CVA Tenderness (L), CVA Tenderness (R) Extremities: Normal Inspection Neurological: Alert, Oriented, Normal Cognition Psychiatric: Normal Affect, Normal Mood Skin Exam: Warm, Dry, Intact, Normal Color Course - Vital Signs Last Recorded V/S: Last Vital Signs Temp 98.6 F 06/17/20 14:00 Pulse 65 06/17/20 14:00 Resp 18 06/17/20 14:00 BP 128/72 06/17/20 14:00 Pulse Ox 100 06/17/20 14:00 - Orders/Labs/Meds Orders: Active Orders 24 hr Category Date Time Status Abdomen Pelvis wo Cont [CT] Stat Exams 06/17/20 14:46 Taken Sodium Chloride 0.9% [Normal Saline] 1,000 ml Med 06/17/20 14:30 Active IV ASDIRECTED Sodium Chloride 0.9% [Normal Saline] 1,000 ml Med 06/17/20 14:30 Active IV ASDIRECTED Medication Orders Sodium Chloride (Normal Saline) 1,000 mls @ 200 mls/hr IV ASDIRECTED MIKA Last Admin: 06/17/20 14:46 Dose: 200 mls/hr Documented by: JASON Sodium Chloride (Normal Saline) 1,000 mls @ 200 mls/hr IV ASDIRECTED MIKA Labs: Laboratory Tests 06/17/20 06/17/20 06/17/20 Range/Units 14:36 14:36 14:36 WBC 6.9 (5.0-10.0) 10^3/uL RBC 4.41 (4.00-5.50) 10^6/uL Hgb 12.7 (12.0-16.0) g/dL Hct 38.3 (37.0-47.0) % MCV 86.8 (82.0-94.0) fL MCH 28.8 (27.0-32.0) pg MCHC 33.2 (33.0-38.0) g/dL RDW Coeff of Anupama 13.2 (11.0-15.0) % Plt Count 273 (150-400) 10^3/uL Neut % (Auto) 56.7 (35-85) % Lymph % (Auto) 34.7 (10-55) % [place] % (Auto) 7.1 (0-16) % Eos % (Auto) 1.2 (0-5) % Baso % (Auto) 0.3 (0-3) % Neut # (Auto) 3.89 (1.80-7.00) 10^3/uL Lymph # (Auto) 2.38 (1.00-4.80) 10^3/uL [place] # (Auto) 0.49 (0.00-0.80) 10^3/uL Eos # (Auto) 0.08 (0.00-0.45) 10^3/uL Baso # (Auto) 0.02 10^3/uL Sodium 138 (136-145) mEq/L Potassium 4.6 D (3.5-5.0) mEq/L Chloride 106 (98-106) mEq/L Carbon Dioxide 24 (21-32) mmol/L BUN 16 D (7-18) mg/dL Creatinine 0.7 (0.6-1.0) mg/dL Est Cr Clr Drug Dosing TNP Estimated GFR (MDRD) > 60 (>=60) mL/min Glucose 112 H (75-99) mg/dL Lactic Acid (0.4-2.0) mmol/L Calcium 8.7 (8.4-10.1) mg/dL Total Bilirubin 0.1 (0.0-1.0) mg/dL AST 19 (15-37) U/L ALT 24 (12-78) U/L Alkaline Phosphatase 105 (46-116) U/L C-Reactive Protein 0.2 (0.2-0.8) mg/dL Total Protein 6.5 (6.4-8.2) g/dL Albumin 3.1 L (3.4-5.0) g/dL Amylase 57 (25-115) U/L Lipase 153 (73-393) U/L Urine Color Yellow (YELLOW) Urine Appearance Clear (CLEAR) Urine pH 6.0 (4.5-8.0) Ur Specific [place] 1.025 H (1.003-1.020) Urine Protein Negative (NEGATIVE) mg/dL Urine Glucose (UA) Negative (NEGATIVE) mg/dL Urine Ketones Negative (NEGATIVE) mg/dL Urine Occult Blood Moderate H (NEGATIVE) Urine Nitrite Negative (NEGATIVE) Urine Bilirubin Negative (NEGATIVE) Urine Urobilinogen 0.2 (0.2-1.0) EU/dL Ur Leukocyte Esterase Negative (NEGATIVE) Urine RBC 10-20 H (0-5) /HPF Urine WBC 0-5 (0-5) /HPF Ur Epithelial Cells Moderate H (NOT SEEN) /HPF Urine Bacteria Few H (NOT SEEN) /HPF 06/17/20 Range/Units 14:36 WBC (5.0-10.0) 10^3/uL RBC (4.00-5.50) 10^6/uL Hgb (12.0-16.0) g/dL Hct (37.0-47.0) % MCV (82.0-94.0) fL MCH (27.0-32.0) pg MCHC (33.0-38.0) g/dL RDW Coeff of Anupama (11.0-15.0) % Plt Count (150-400) 10^3/uL Neut % (Auto) (35-85) % Lymph % (Auto) (10-55) % [place] % (Auto) (0-16) % Eos % (Auto) (0-5) % Baso % (Auto) (0-3) % Neut # (Auto) (1.80-7.00) 10^3/uL Lymph # (Auto) (1.00-4.80) 10^3/uL [place] # (Auto) (0.00-0.80) 10^3/uL Eos # (Auto) (0.00-0.45) 10^3/uL Baso # (Auto) 10^3/uL Sodium (136-145) mEq/L Potassium (3.5-5.0) mEq/L Chloride (98-106) mEq/L Carbon Dioxide (21-32) mmol/L BUN (7-18) mg/dL Creatinine (0.6-1.0) mg/dL Est Cr Clr Drug Dosing Estimated GFR (MDRD) (>=60) mL/min Glucose (75-99) mg/dL Lactic Acid 1.3 (0.4-2.0) mmol/L Calcium (8.4-10.1) mg/dL Total Bilirubin (0.0-1.0) mg/dL AST (15-37) U/L ALT (12-78) U/L Alkaline Phosphatase (46-116) U/L C-Reactive Protein (0.2-0.8) mg/dL Total Protein (6.4-8.2) g/dL Albumin (3.4-5.0) g/dL Amylase (25-115) U/L Lipase (73-393) U/L Urine Color (YELLOW) Urine Appearance (CLEAR) Urine pH (4.5-8.0) Ur Specific [place] (1.003-1.020) Urine Protein (NEGATIVE) mg/dL Urine Glucose (UA) (NEGATIVE) mg/dL Urine Ketones (NEGATIVE) mg/dL Urine Occult Blood (NEGATIVE) Urine Nitrite (NEGATIVE) Urine Bilirubin (NEGATIVE) Urine Urobilinogen (0.2-1.0) EU/dL Ur Leukocyte Esterase (NEGATIVE) Urine RBC (0-5) /HPF Urine WBC (0-5) /HPF Ur Epithelial Cells (NOT SEEN) /HPF Urine Bacteria (NOT SEEN) /HPF Meds: Medications Generic Name Dose Route Start Last Admin Trade Name Freq PRN Reason Stop Dose Admin Sodium Chloride 1,000 mls @ 200 mls/hr 06/17/20 14:30 06/17/20 14:46 Normal Saline IV 200 mls/hr ASDIRECTED MIKA Administration Sodium Chloride 1,000 mls @ 200 mls/hr 06/17/20 14:30 Normal Saline IV ASDIRECTED MIKA Discontinued Medications Generic Name Dose Route Start Last Admin Trade Name Freq PRN Reason Stop Dose Admin Fentanyl 50 mcg 06/17/20 15:23 06/17/20 15:27 Sublimaze IVPUSH 06/17/20 15:24 50 mcg ONETIME ONE Administration Morphine Sulfate 4 mg 06/17/20 14:18 06/17/20 14:29 Morphine IVPUSH 06/17/20 14:19 4 mg ONETIME ONE Administration Morphine Sulfate 8 mg 06/17/20 14:31 06/17/20 15:25 Morphine IVPUSH 06/17/20 14:32 Not Given ONETIME ONE Ondansetron HCl 8 mg 06/17/20 14:36 06/17/20 14:39 Zofran IVPUSH 06/17/20 14:37 8 mg ONETIME STA Administration Departure - Departure Time of Disposition: 16:16 Disposition: Refer to Observation Condition: Good, Fair Clinical Impression: Kidney stone on right side - Discharge Information *PRESCRIPTION DRUG MONITORING PROGRAM REVIEWED*: No *COPY OF PRESCRIPTION DRUG MONITORING REPORT IN PATIENT HANNAH: No Referrals: Tootie Roldan PA [Primary Care Provider] - Forms: ED Department Discharge Sepsis Event Note (ED) - Focused Exam Vital Signs: Vital Signs Temp Pulse Resp BP Pulse Ox 01/19/21 14:00 98.6 F 65 18 128/72 100 - Problem List & Annotations (1) Kidney stone on right side SNOMED Code(s): 09447875 Code(s): N20.0 - CALCULUS OF KIDNEY Status: Acute Current Visit: Yes - My Orders Last 24 Hours: My Active Orders 06/17/20 14:30 Sodium Chloride 0.9% [Normal Saline] 1,000 ml IV ASDIRECTED Sodium Chloride 0.9% [Normal Saline] 1,000 ml IV ASDIRECTED 06/17/20 14:46 Abdomen Pelvis wo Cont [CT] Stat - Assessment/Plan Admission H&P: Please use this note as an admission H&P Last 24 Hours: My Active Orders 06/17/20 14:30 Sodium Chloride 0.9% [Normal Saline] 1,000 ml IV ASDIRECTED Sodium Chloride 0.9% [Normal Saline] 1,000 ml IV ASDIRECTED 06/17/20 14:46 Abdomen Pelvis wo Cont [CT] Stat Plan: Laboratory work shows no leukocytosis. Urinalysis was positive for blood. CT of the abdomen/pelvis ordered. Ct reviewed and did show roughly 5mm stone proximally with moderate hydronephrosis. Will admits to Dr. Farley's services under observation status. Patient continues to be in moderate discomfort with Fentanyl and Morphine given. Will try Dilaudid to see if any relief. Toradol to be given intravenously as well. Flomax ordered.
[2020-06-17 15:03] LABS: CHLORIDE,CL 106 mEq/L (98-106); SODIUM,NA 138 mEq/L (136-145)
[2020-06-17] MEDS ORDERED: fentaNYL 100 MCG/2 ML SDV IVPUSH ONE (15:23)
[2020-06-17] MEDS ORDERED: Ondansetron 4 MG/2 ML SDV IV PRN (16:48)
[2020-06-17] MEDS: HYDROmorphone 1 MG/ML Syringe IVPUSH PRN ×3 (16:56→21:45)
[2020-06-17] MEDS: Ketorolac 30 MG/ML SDV IV PRN (18:18)
[2020-06-17] MEDS: Enoxaparin 40 MG/0.4 ML Syringe SUBCUT SCH (18:23)
[2020-06-17] MEDS: Tamsulosin 0.4 MG Cap.ER PO SCH (19:47)
[2020-06-18] MEDS: HYDROmorphone 1 MG/ML Syringe IVPUSH PRN (01:08)
[2020-06-18] MEDS: Sodium Chloride 0.9% 1,000 ML IV SCH ×2 (01:10→05:29)
[2020-06-18] MEDS: Ketorolac 30 MG/ML SDV IV PRN (05:22)
[2020-06-18 07:31] LABS: CHLORIDE,CL 112 mEq/L (98-106); SODIUM,NA 144 mEq/L (136-145)
[2020-06-18] MEDS ORDERED: Ketorolac 30 MG/ML SDV IVPUSH PRN (09:15)
[2020-06-18] MEDS ORDERED: Cyclobenzaprine 10 MG Tab PO PRN (09:19)
[2020-06-18] MEDS ORDERED: Non-Formulary Medication 1 Each (Potassium Chloride [Potassium Chloride] 20 MEQ) PO SCH (09:30)
[2020-06-18] MEDS: Acetaminophen/oxyCODONE 325-5 MG Tab PO PRN ×2 (09:59→20:23)
--- NOTE | 2020-06-18 10:13 | PCM.PN ---
- General Info Date of Service: 06/18/20 Admission Dx/Problem (Free Text): Kidney stone (right) Subjective Update: Malu is a 45 yo female who was admitted to the hospital yesterday for kidney stone. Has history of kidney stones. CT scan did confirm ureteral stone on the right with hydronephrosis. 06/19/2020 Patient's pain has improved since yesterday. Patient was given Morphine and Fentanyl in ED, which she didn't get any relief. Ended up switching to Dilaudid and Toradol IV, which has seemed to help. She states she has been urinating and straining urine with no stone seen. Patient was given Flomax 0.4mg yesterday as well. She denies any fevers. No worsening of symptoms. Improvement with nausea. Functional Status: Reports: Pain Controlled - Review of Systems General: Denies: Fever HEENT: Reports: No Symptoms Pulmonary: Reports: No Symptoms Cardiovascular: Reports: No Symptoms Gastrointestinal: Reports: Abdominal Pain, Decreased Appetite, Nausea. Denies: Diarrhea, Vomiting Genitourinary: Reports: Flank Pain. Denies: Frequency, Burning Musculoskeletal: Reports: No Symptoms Skin: Reports: No Symptoms Neurological: Reports: No Symptoms Psychiatric: Reports: No Symptoms - Patient Data Vitals - Most Recent: Last Vital Signs Temp 96.9 F 06/18/20 07:46 Pulse 57 L 06/18/20 07:46 Resp 18 06/18/20 07:46 BP 92/45 L 06/18/20 07:46 Pulse Ox 95 06/18/20 07:46 Weight - Most Recent: 200 lb I&O - Last 24 Hours: Intake & Output 06/17/20 06/18/20 06/18/20 22:59 06:59 14:59 Intake Total 1000 1863 Balance 1000 1863 Lab Results Last 24 Hours: Laboratory Results - last 24 hr 06/17/20 06/17/20 06/17/20 Range/Units 14:36 14:36 14:36 WBC 6.9 (5.0-10.0) 10^3/uL RBC 4.41 (4.00-5.50) 10^6/uL Hgb 12.7 (12.0-16.0) g/dL Hct 38.3 (37.0-47.0) % MCV 86.8 (82.0-94.0) fL MCH 28.8 (27.0-32.0) pg MCHC 33.2 (33.0-38.0) g/dL RDW Coeff of Anupama 13.2 (11.0-15.0) % Plt Count 273 (150-400) 10^3/uL Neut % (Auto) 56.7 (35-85) % Lymph % (Auto) 34.7 (10-55) % [place] % (Auto) 7.1 (0-16) % Eos % (Auto) 1.2 (0-5) % Baso % (Auto) 0.3 (0-3) % Neut # (Auto) 3.89 (1.80-7.00) 10^3/uL Lymph # (Auto) 2.38 (1.00-4.80) 10^3/uL [place] # (Auto) 0.49 (0.00-0.80) 10^3/uL Eos # (Auto) 0.08 (0.00-0.45) 10^3/uL Baso # (Auto) 0.02 10^3/uL Sodium 138 (136-145) mEq/L Potassium 4.6 D (3.5-5.0) mEq/L Chloride 106 (98-106) mEq/L Carbon Dioxide 24 (21-32) mmol/L BUN 16 D (7-18) mg/dL Creatinine 0.7 (0.6-1.0) mg/dL Est Cr Clr Drug Dosing TNP Estimated GFR (MDRD) > 60 (>=60) mL/min Glucose 112 H (75-99) mg/dL Lactic Acid (0.4-2.0) mmol/L Calcium 8.7 (8.4-10.1) mg/dL Total Bilirubin 0.1 (0.0-1.0) mg/dL AST 19 (15-37) U/L ALT 24 (12-78) U/L Alkaline Phosphatase 105 (46-116) U/L C-Reactive Protein 0.2 (0.2-0.8) mg/dL Total Protein 6.5 (6.4-8.2) g/dL Albumin 3.1 L (3.4-5.0) g/dL Amylase 57 (25-115) U/L Lipase 153 (73-393) U/L Urine Color Yellow (YELLOW) Urine Appearance Clear (CLEAR) Urine pH 6.0 (4.5-8.0) Ur Specific [place] 1.025 H (1.003-1.020) Urine Protein Negative (NEGATIVE) mg/dL Urine Glucose (UA) Negative (NEGATIVE) mg/dL Urine Ketones Negative (NEGATIVE) mg/dL Urine Occult Blood Moderate H (NEGATIVE) Urine Nitrite Negative (NEGATIVE) Urine Bilirubin Negative (NEGATIVE) Urine Urobilinogen 0.2 (0.2-1.0) EU/dL Ur Leukocyte Esterase Negative (NEGATIVE) Urine RBC 10-20 H (0-5) /HPF Urine WBC 0-5 (0-5) /HPF Ur Epithelial Cells Moderate H (NOT SEEN) /HPF Urine Bacteria Few H (NOT SEEN) /HPF 06/17/20 06/18/20 06/18/20 Range/Units 14:36 06:50 06:50 WBC 5.1 (5.0-10.0) 10^3/uL RBC 3.82 L (4.00-5.50) 10^6/uL Hgb 11.0 L (12.0-16.0) g/dL Hct 34.0 L (37.0-47.0) % MCV 89.0 (82.0-94.0) fL MCH 28.8 (27.0-32.0) pg MCHC 32.4 L (33.0-38.0) g/dL RDW Coeff of Anupama 13.5 (11.0-15.0) % Plt Count 214 (150-400) 10^3/uL Neut % (Auto) 36.8 (35-85) % Lymph % (Auto) 52.5 (10-55) % [place] % (Auto) 7.7 (0-16) % Eos % (Auto) 2.6 (0-5) % Baso % (Auto) 0.4 (0-3) % Neut # (Auto) 1.87 (1.80-7.00) 10^3/uL Lymph # (Auto) 2.66 (1.00-4.80) 10^3/uL [place] # (Auto) 0.39 (0.00-0.80) 10^3/uL Eos # (Auto) 0.13 (0.00-0.45) 10^3/uL Baso # (Auto) 0.02 10^3/uL Sodium 144 (136-145) mEq/L Potassium 3.7 (3.5-5.0) mEq/L Chloride 112 H (98-106) mEq/L Carbon Dioxide 25 (21-32) mmol/L BUN 10 (7-18) mg/dL Creatinine 0.8 (0.6-1.0) mg/dL Est Cr Clr Drug Dosing 83.13 Estimated GFR (MDRD) > 60 (>=60) mL/min Glucose 93 (75-99) mg/dL Lactic Acid 1.3 (0.4-2.0) mmol/L Calcium 7.7 L (8.4-10.1) mg/dL Total Bilirubin (0.0-1.0) mg/dL AST (15-37) U/L ALT (12-78) U/L Alkaline Phosphatase (46-116) U/L C-Reactive Protein 1.2 H (0.2-0.8) mg/dL Total Protein (6.4-8.2) g/dL Albumin (3.4-5.0) g/dL Amylase (25-115) U/L Lipase (73-393) U/L Urine Color (YELLOW) Urine Appearance (CLEAR) Urine pH (4.5-8.0) Ur Specific [place] (1.003-1.020) Urine Protein (NEGATIVE) mg/dL Urine Glucose (UA) (NEGATIVE) mg/dL Urine Ketones (NEGATIVE) mg/dL Urine Occult Blood (NEGATIVE) Urine Nitrite (NEGATIVE) Urine Bilirubin (NEGATIVE) Urine Urobilinogen (0.2-1.0) EU/dL Ur Leukocyte Esterase (NEGATIVE) Urine RBC (0-5) /HPF Urine WBC (0-5) /HPF Ur Epithelial Cells (NOT SEEN) /HPF Urine Bacteria (NOT SEEN) /HPF Med Orders - Current: Current Medications Calcium Carbonate/Glycine (Tums) 500 mg PO BID MIKA Clonazepam (Klonopin) 1 mg PO BEDTIME MIKA Cyclobenzaprine HCl (Flexeril) 10 mg PO ASDIRECTED PRN PRN Reason: Muscle Spasm Enoxaparin Sodium (Lovenox) 40 mg SUBCUT Q24H COUNTS INCLUDE 234 BEDS AT THE [facility] Last Admin: 06/17/20 18:23 Dose: 40 mg Documented by: Furosemide (Lasix) 40 mg PO BID MIKA Hydromorphone HCl (Dilaudid) 1 mg IVPUSH Q2H PRN PRN Reason: Pain Last Admin: 06/18/20 01:08 Dose: 1 mg Documented by: Ketorolac Tromethamine (Toradol) 15 mg IVPUSH Q6H PRN PRN Reason: Pain (moderate 4-6) Non-Formulary Medication (Duloxetine [Cymbalta]) 60 mg PO DAILY COUNTS INCLUDE 234 BEDS AT THE [facility] Non-Formulary Medication (Estradiol [Estrace]) 2 mg PO DAILY COUNTS INCLUDE 234 BEDS AT THE [facility] Non-Formulary Medication (Potassium Chloride [Potassium Chloride]) 20 meq PO DAILY COUNTS INCLUDE 234 BEDS AT THE [facility] Non-Formulary Medication (Topiramate [Topiramate Er]) 50 mg PO BID COUNTS INCLUDE 234 BEDS AT THE [facility] Ondansetron HCl (Zofran) 4 mg IV Q4H PRN PRN Reason: Nausea/Vomiting Oxycodone/Acetaminophen (Percocet 325-5 Mg) 1 tab PO Q6H PRN PRN Reason: Pain (moderate 4-6) Last Admin: 06/18/20 09:59 Dose: 1 tab Documented by: Tamsulosin HCl (Flomax) 0.4 mg PO BEDTIME COUNTS INCLUDE 234 BEDS AT THE [facility] Last Admin: 06/17/20 19:47 Dose: 0.4 mg Documented by: Discontinued Medications Fentanyl (Sublimaze) 50 mcg IVPUSH ONETIME ONE Stop: 06/17/20 15:24 Last Admin: 06/17/20 15:27 Dose: 50 mcg Documented by: Sodium Chloride (Normal Saline) 1,000 mls @ 200 mls/hr IV ASDIRECTED COUNTS INCLUDE 234 BEDS AT THE [facility] Last Admin: 06/18/20 05:29 Dose: 200 mls/hr Documented by: Sodium Chloride (Normal Saline) 1,000 mls @ 200 mls/hr IV ASDIRECTED COUNTS INCLUDE 234 BEDS AT THE [facility] Ketorolac Tromethamine (Toradol) 30 mg IV Q6H PRN PRN Reason: Pain (moderate 4-6) Last Admin: 06/18/20 05:22 Dose: 30 mg Documented by: Morphine Sulfate (Morphine) 4 mg IVPUSH ONETIME ONE Stop: 06/17/20 14:19 Last Admin: 06/17/20 14:29 Dose: 4 mg Documented by: Morphine Sulfate (Morphine) 8 mg IVPUSH ONETIME ONE Stop: 06/17/20 14:32 Last Admin: 06/17/20 15:25 Dose: Not Given Documented by: Ondansetron HCl (Zofran) 8 mg IVPUSH ONETIME STA Stop: 06/17/20 14:37 Last Admin: 06/17/20 14:39 Dose: 8 mg Documented by: - Exam General: Alert, Oriented, Cooperative, No Acute Distress Lungs: Clear to Auscultation, Normal Respiratory Effort Cardiovascular: Regular Rate, Regular Rhythm GI/Abdominal Exam: Normal Bowel Sounds, Soft, No Organomegaly, Tender (mild tenderness to RLQ) Extremities: Normal Inspection. No: Pedal Edema Skin: Warm, Dry, Intact Psy/Mental Status: Alert, Normal Affect, Normal Mood Sepsis Event Note - Evaluation Sepsis Screening Result: No Definite Risk - Focused Exam Vital Signs: Vital Signs Temp Pulse Resp BP Pulse Ox 06/18/20 07:46 96.9 F 57 L 18 92/45 L 95 06/18/20 00:00 98.2 F 74 18 114/62 97 - Problem List & Annotations (1) Kidney stone on right side SNOMED Code(s): 99041252 Code(s): N20.0 - CALCULUS OF KIDNEY Status: Acute Current Visit: Yes - Problem List Review Problem List Initiated/Reviewed/Updated: Yes - My Orders Last 24 Hours: My Active Orders 06/17/20 14:46 Abdomen Pelvis wo Cont [CT] Stat 06/17/20 16:20 Resuscitation Status Routine 06/17/20 16:48 HYDROmorphone [Dilaudid] 1 mg IVPUSH Q2H PRN Ondansetron [Zofran] 4 mg IV Q4H PRN 06/17/20 16:48 Patient Status [ADT] Routine Oxygen Therapy [RC] .PRN Strain Urine [RC] .PRN Up ad Paige [RC] .PRN Vital Signs [RC] 0800,1200,1600,2000,0000 Antiembolic Hose [OM.PC] Per Unit Routine 06/17/20 17:16 STEPHEN Hose [Antiembolic Hose] [OM.PC] Routine 06/17/20 17:17 Antiembolic Devices [RC] 1000 06/17/20 Dinner Regular Diet [DIET] Enoxaparin [Lovenox] 40 mg SUBCUT Q24H 06/17/20 20:00 Tamsulosin [Flomax] 0.4 mg PO BEDTIME 06/18/20 08:00 DULoxetine [Cymbalta] 60 mg PO DAILY 06/18/20 09:14 Acetaminophen/oxyCODONE [Percocet 325-5 MG] 1 tab PO Q6H PRN 06/18/20 09:15 Ketorolac [Toradol] 15 mg IVPUSH Q6H PRN 06/18/20 09:19 Cyclobenzaprine [Flexeril] 10 mg PO ASDIRECTED PRN 06/18/20 09:30 Calcium Carbonate [Tums] 500 mg PO BID Estradiol [Estrace] 2 mg PO DAILY Furosemide [Lasix] 40 mg PO BID Potassium Chloride [Potassium Chloride] 20 meq PO DAILY Topiramate [Topiramate ER] 50 mg PO BID 06/18/20 20:00 ClonazePAM [KlonoPIN] 1 mg PO BEDTIME 06/19/20 05:11 BASIC METABOLIC PANEL,BMP [CHEM] AM CBC WITH AUTO DIFF [HEME] AM CRP [C-REACTIVE PROTEIN] [CHEM] AM - Plan Plan:: Patient appears to be much improved since yesterday. Will transition to oral pain medication today. Discussed pain control and as long as she isn't running a fever or have signs of infection, will plan for discharge once pain is tolerable. IV fluids stopped today. Patient in agreement with treatment and will plan for discharge tomorrow if continues to improve today.
[2020-06-18] MEDS: ESTRADIOL 2 MG PO SCH (11:22)
[2020-06-18] MEDS: DULOXETINE 60 MG PO SCH (11:23)
[2020-06-18] MEDS: Furosemide 40 MG Tab PO SCH ×2 (11:24→16:41)
[2020-06-18] MEDS: TOPIRAMATE 100 MG PO SCH ×2 (11:25→20:21)
[2020-06-18] MEDS: Calcium Carbonate 500 MG Tab.Chew PO SCH ×2 (11:26→20:13)
[2020-06-18] MEDS ORDERED: CLONAZEPAM 1 MG PO SCH (20:00)
[2020-06-18] MEDS: Enoxaparin 40 MG/0.4 ML Syringe SUBCUT SCH (20:12)
[2020-06-18] MEDS: Tamsulosin 0.4 MG Cap.ER PO SCH (20:14)
[2020-06-19] MEDS: Enoxaparin 40 MG/0.4 ML Syringe SUBCUT SCH (06:47)
[2020-06-19 07:25] LABS: CHLORIDE,CL 108 mEq/L (98-106); SODIUM,NA 142 mEq/L (136-145)
[2020-06-19 07:48] VITALS: BP 102/51; PULSE 63
[2020-06-19] MEDS: DULOXETINE 60 MG PO SCH (07:57)
[2020-06-19] MEDS: TOPIRAMATE 100 MG PO SCH (07:58)
[2020-06-19] MEDS: ESTRADIOL 2 MG PO SCH (07:58)
[2020-06-19] MEDS: Furosemide 40 MG Tab PO SCH (07:58)
[2020-06-19] MEDS: Calcium Carbonate 500 MG Tab.Chew PO SCH (07:59)
--- NOTE | 2020-06-19 13:16 | PCM.DCSUM1 ---
Discharge Summary - Hospital Course HPI Initial Comments: Malu is a 45 yo female who was admitted to the hospital on Tuesday with nephrolithiasis. Patient had been experiencing symptoms of flank and abdominal pain since Tuesday. Pain had progressively worsened and was admitted for pain control. - Discharge Data Discharge Date: 06/19/20 Discharge Disposition: Home, Self-Care 01 Condition: Good - Referral to Home Health Primary Care Physician: ED Foley - Discharge Diagnosis/Problem(s) (1) Kidney stone on right side SNOMED Code(s): 26358307 ICD Code: N20.0 - CALCULUS OF KIDNEY Status: Resolved - Patient Instructions Diet: Usual Diet as Tolerated Activity: As Tolerated Notify Provider of: Fever, Increased Pain, Nausea and/or Vomiting - Discharge Plan *PRESCRIPTION DRUG MONITORING PROGRAM REVIEWED*: No *COPY OF PRESCRIPTION DRUG MONITORING REPORT IN PATIENT HANNAH: No Prescriptions/Med Rec: Acetaminophen/oxyCODONE [Percocet 325-5 MG] 1 tab PO Q6H PRN #8 tablet PRN Reason: Pain (Moderate 4-6) Home Medications: Home Meds Cholecalciferol (Vitamin D3) [Vitamin D3] 5,000 unit PO DAILY 09/20/13 [History] Cyclobenzaprine [Flexeril] 10 mg PO ASDIRECTED PRN 09/20/13 [History] Furosemide 40 mg PO BID 09/20/13 [History] clonazePAM [Clonazepam] 1 mg PO BEDTIME 09/20/13 [History] Estradiol [Estrace] 2 mg PO DAILY 02/03/17 [History] Potassium Chloride 20 meq PO DAILY 02/03/17 [History] Butalb/Acetaminophen/Caffeine [Eextkh-Evzcddpg-Zilw 50-300-40] 1 each PO ASDIRECTED PRN 01/03/18 [History] Ketorolac [Toradol] 10 mg PO Q6H PRN #20 tab 06/16/18 [Rx] DULoxetine [Cymbalta] 60 mg PO DAILY 04/06/19 [History] Ondansetron [Ondansetron ODT] 4 mg SL Q6HR PRN 02/15/20 [History] Topiramate [Topiramate ER] 50 mg PO BID 06/17/20 [History] Acetaminophen/oxyCODONE [Percocet 325-5 MG] 1 tab PO Q6H PRN #8 tablet 06/19/20 [Rx] Patient Handouts: Kidney Stones, [id number] Forms: ED Department Discharge Referrals: Tootei Roldan PA [Primary Care Provider] - (2 weeks) - Discharge Summary/Plan Comment DC Time >30 min.: Yes Discharge Summary/Plan Comment: Malu has passed her stone. Will discharge home today as no further concerns at this time. Discussed kidney stones and remaining stone sitting in the kidney. May pass in the future. Labs overall stable. Patient to be discharged in satisfactory condition. - General Info Date of Service: 06/19/20 Functional Status: Reports: Pain Controlled - Review of Systems General: Reports: No Symptoms Pulmonary: Reports: No Symptoms Cardiovascular: Reports: No Symptoms Gastrointestinal: Reports: No Symptoms Musculoskeletal: Reports: Back Pain Neurological: Reports: No Symptoms Psychiatric: Reports: No Symptoms - Patient Data Vitals - Most Recent: Last Vital Signs Temp 97 F 06/19/20 07:47 Pulse 63 06/19/20 07:47 Resp 16 06/19/20 07:47 BP 102/51 L 06/19/20 07:47 Pulse Ox 98 06/19/20 07:47 Weight - Most Recent: 200 lb Lab Results - Last 24 hrs: Laboratory Results - last 24 hr 06/19/20 06/19/20 Range/Units 06:50 06:50 WBC 5.3 (5.0-10.0) 10^3/uL RBC 4.26 (4.00-5.50) 10^6/uL Hgb 12.2 (12.0-16.0) g/dL Hct 37.3 (37.0-47.0) % MCV 87.6 (82.0-94.0) fL MCH 28.6 (27.0-32.0) pg MCHC 32.7 L (33.0-38.0) g/dL RDW Coeff of Anupama 13.3 (11.0-15.0) % Plt Count 249 (150-400) 10^3/uL Neut % (Auto) 32.7 L (35-85) % Lymph % (Auto) 56.5 H (10-55) % Sanborn % (Auto) 7.4 (0-16) % Eos % (Auto) 3.0 (0-5) % Baso % (Auto) 0.4 (0-3) % Neut # (Auto) 1.73 L (1.80-7.00) 10^3/uL Lymph # (Auto) 2.99 (1.00-4.80) 10^3/uL Sanborn # (Auto) 0.39 (0.00-0.80) 10^3/uL Eos # (Auto) 0.16 (0.00-0.45) 10^3/uL Baso # (Auto) 0.02 10^3/uL Sodium 142 (136-145) mEq/L Potassium 3.8 (3.5-5.0) mEq/L Chloride 108 H (98-106) mEq/L Carbon Dioxide 29 (21-32) mmol/L BUN 12 (7-18) mg/dL Creatinine 0.9 (0.6-1.0) mg/dL Est Cr Clr Drug Dosing 73.90 mL/min Estimated GFR (MDRD) > 60 (>=60) mL/min Glucose 89 (75-99) mg/dL Calcium 8.6 (8.4-10.1) mg/dL C-Reactive Protein 1.7 H (0.2-0.8) mg/dL Med Orders - Current: Current Medications Discontinued Medications Calcium Carbonate/Glycine (Tums) [address] [facility] Last Admin: 06/19/20 07:59 Dose: Not Given Documented by: Clonazepam (Klonopin) 0.[address] [facility] Last Admin: 06/18/20 20:22 Dose: 0.5 mg Documented by: Cyclobenzaprine HCl (Flexeril) 10 mg PO TID PRN PRN Reason: Muscle Spasm Last Admin: 06/18/20 11:24 Dose: 10 mg Documented by: Enoxaparin Sodium (Lovenox) [address] [facility] Last Admin: 06/19/20 06:47 Dose: Not Given Documented by: Fentanyl (Sublimaze) 50 mcg IVPUSH ONETIME ONE Stop: 06/17/20 15:24 Last Admin: 06/17/20 15:27 Dose: 50 mcg Documented by: Furosemide (Lasix) [address] [facility] Last Admin: 06/19/20 07:58 Dose: 40 mg Documented by: Hydromorphone HCl (Dilaudid) 1 mg IVPUSH Q2H PRN PRN Reason: Pain Last Admin: 06/18/20 01:08 Dose: 1 mg Documented by: Sodium Chloride (Normal Saline) 1,000 mls @ 200 mls/hr IV ASDIRECTED [facility] Last Admin: 06/18/20 05:29 Dose: 200 mls/hr Documented by: Sodium Chloride (Normal Saline) 1,000 mls @ 200 mls/hr IV ASDIRECTED [facility] Ketorolac Tromethamine (Toradol) 30 mg IV Q6H PRN PRN Reason: Pain (moderate 4-6) Last Admin: 06/18/20 05:22 Dose: 30 mg Documented by: Ketorolac Tromethamine (Toradol) 15 mg IVPUSH Q6H PRN PRN Reason: Pain (moderate 4-6) Morphine Sulfate (Morphine) 4 mg IVPUSH ONETIME ONE Stop: 06/17/20 14:19 Last Admin: 06/17/20 14:29 Dose: 4 mg Documented by: Morphine Sulfate (Morphine) 8 mg IVPUSH ONETIME ONE Stop: 06/17/20 14:32 Last Admin: 06/17/20 15:25 Dose: Not Given Documented by: Duloxetine [Cymbalta (] 60 Mg Cap Ptom) [address] [facility] Last Admin: 06/19/20 07:57 Dose: 1 mg Documented by: Estradiol [Estrace] (2 Mg Tab Ptom) [address] [facility] Last Admin: 06/19/20 07:58 Dose: 1 mg Documented by: Non-Formulary Medication (Potassium Chloride [Potassium Chloride]) [address] [facility] Last Admin: 06/18/20 20:25 Dose: Not Given Documented by: Topiramate [ Topiramate Er] 100 Mg Tab Ptom [address] [facility] Last Admin: 06/19/20 07:58 Dose: 1 mg Documented by: Ondansetron HCl (Zofran) 8 mg IVPUSH ONETIME STA Stop: 06/17/20 14:37 Last Admin: 06/17/20 14:39 Dose: 8 mg Documented by: Ondansetron HCl (Zofran) 4 mg IV Q4H PRN PRN Reason: Nausea/Vomiting Oxycodone/Acetaminophen (Percocet 325-5 Mg) 1 tab PO Q6H PRN PRN Reason: Pain (moderate 4-6) Last Admin: 06/18/20 20:23 Dose: 1 tab Documented by: Tamsulosin HCl (Flomax) 0.4 mg PO BEDTIME [facility] Last Admin: 06/18/20 20:14 Dose: 0.4 mg Documented by: - Exam General: Reports: Alert, Oriented, Cooperative, No Acute Distress GI/Abdominal Exam: Normal Bowel Sounds, Soft, Non-Tender, No Distention Back Exam: Reports: Paraspinal Tenderness. Denies: CVA Tenderness (L), CVA Tenderness (R) Extremities: No Pedal Edema Skin: Reports: Warm, Dry, Intact
== END 2020-06-19 09:26 | disposition home or self-care (01) ==
LOC: CC.ED 13:46 → CC.MS 16:19 → UNDOADMOB 16:22 → CC.MS 16:22
PROVIDERS: ADMIT Physician Assistant Medical; ATTEND Family Medicine
DX: N13.2 Hydronephrosis with renal and ureteral calculous obstruction (principal); K21.9 Gastro-esophageal reflux disease without esophagitis; Z88.8 Allergy status to other drugs, medicaments and biological substances; Z88.1 Allergy status to other antibiotic agents; Z79.899 Other long term (current) drug therapy; Z90.49 Acquired absence of other specified parts of digestive tract
CPT/HCPCS: 36415; 74176; 80048; 80053; 81001; 82150; 82365; 83605; 83690; 85025; 86140; 96374; 96375; 99285; A9270; J1170; J1650; J1885; J2270; J2405; J3010; J7030; 96372; 96376; G0378

== ENCOUNTER 2020-10-14 15:13 | Emergency (ER) | payer OTHER, BC ==
[2020-10-14] MEDS ORDERED: Morphine 4 MG/ML VIAL IVPUSH ONE (15:38)
[2020-10-14 15:56] VITALS: BP 135/75; PULSE 85
[2020-10-14] MEDS ORDERED: fentaNYL 50 MCG/ML SDV IVPUSH ONE (16:30)
--- NOTE | 2020-10-14 16:31 | EDM.PDOC ---
ED HPI GENERAL MEDICAL PROBLEM - General Chief Complaint: Lower Extremity Injury/Pain Stated Complaint: POSSIBLE BROCKEN ANKLE/HIP PAIN Time Seen by Provider: 10/14/20 15:20 Source of Information: Reports: Patient History Limitations: Reports: No Limitations - History of Present Illness INITIAL COMMENTS - FREE TEXT/NARRATIVE: Malu is a 45 yo female who is brought into the ED via [facility] after sustaining a fall down 2 steps. She states she was going down the steps outside when she isn't exactly sure what happened. States she felt her right leg give out and she fell face forward. States she was wearing her hard hat at work. No loss of consciousness. Admits to severe pain in the posterior aspect of her right ankle. She states she didn't try getting up. Witnesses did help her onto her butt and states her left wrist, right elbow, right hip and both knees hurt. Is complaining of low back pain but does have history of low back pain. Generalized Pain Score (Numeric/FACES): 10 - Related Data Allergies Allergy/AdvReac Type Severity Reaction Status Date / Time levofloxacin [From Levaquin] Allergy Anaphylactic Verified 10/14/20 16:12 Shock metronidazole [From Flagyl] Allergy Cannot Verified 10/14/20 16:12 Remember Metronidazole HCl Allergy Cannot Verified 10/14/20 16:12 [From Flagyl] Remember amoxicillin AdvReac Diarrhea Verified 10/14/20 16:12 Home Meds: Home Meds Cholecalciferol (Vitamin D3) [Vitamin D3] 5,000 unit PO DAILY 09/20/13 [History] Cyclobenzaprine [Flexeril] 10 mg PO ASDIRECTED PRN 09/20/13 [History] Furosemide 40 mg PO BID 09/20/13 [History] clonazePAM [Clonazepam] 1 mg PO BEDTIME 09/20/13 [History] Estradiol [Estrace] 2 mg PO DAILY 02/03/17 [History] Potassium Chloride 20 meq PO DAILY 02/03/17 [History] Butalb/Acetaminophen/Caffeine [Dhfgyx-Ddivtzds-Fuqm 50-300-40] 1 each PO ASDIRECTED PRN 01/03/18 [History] Ketorolac [Toradol] 10 mg PO Q6H PRN #20 tab 06/16/18 [Rx] DULoxetine [Cymbalta] 60 mg PO DAILY 04/06/19 [History] Ondansetron [Ondansetron ODT] 4 mg SL Q6HR PRN 02/15/20 [History] Topiramate [Topiramate ER] 50 mg PO BID 06/17/20 [History] Acetaminophen/oxyCODONE [Percocet 325-5 MG] 1 tab PO Q6H PRN #8 tablet 06/19/20 [Rx] Past Medical History Gastrointestinal History: Reports: GERD Genitourinary History: Reports: Renal Calculus 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 Musculoskeletal History: Reports: Arthritis, Back Pain, Chronic, Osteoarthritis Neurological History: Reports: Migraines Psychiatric History: Reports: Anxiety, Depression - Infectious Disease History Infectious Disease History: Reports: None - Past Surgical History HEENT Surgical History: Reports: Naso-Sinus Surgery GI Surgical History: Reports: Cholecystectomy Female Surgical History: Reports: Hysterectomy, Other (See Below) Other Female Surgeries/Procedures: lithotripsy for kidney stones Musculoskeletal Surgical History: Reports: Arthroscopic Knee, Joint Replacement, Other (See Below) Other Musculoskeletal Surgeries/Procedures:: L knee replacement Social & Family History - Family History Family Medical History: No Pertinent Family History - Tobacco Use Tobacco Use Status *Q: Never Tobacco User Second Hand Smoke Exposure: No - Caffeine Use Caffeine Use: Reports: Soda - Recreational Drug Use Recreational Drug Use: No - Living Situation & Occupation Living situation: Reports: Occupation: Employed Review of Systems - Review of Systems Review Of Systems: See Below Constitutional: Reports: No Symptoms Eyes: Reports: No Symptoms Ears: Reports: No Symptoms Nose: Reports: No Symptoms Mouth/Throat: Reports: No Symptoms Respiratory: Reports: No Symptoms Cardiovascular: Reports: No Symptoms GI/Abdominal: Reports: Nausea. Denies: Abdominal Pain, Vomiting Musculoskeletal: Reports: Arm Pain (right elbow, left wrist), Back Pain, Leg Pain, Foot Pain (right ankle), Muscle Pain. Denies: Neck Pain, Shoulder Pain Skin: Reports: Wound (right elbow and both knees) Neurological: Reports: No Symptoms Psychiatric: Reports: No Symptoms ED EXAM, GENERAL - Physical Exam Exam: See Below Exam Limited By: No Limitations General Appearance: Alert, Mild Distress Eye Exam: Bilateral Eye: EOMI, Normal Inspection, PERRL Ears: Normal External Exam, Hearing Grossly Normal Nose: Normal Inspection, Normal Mucosa, No Blood Throat/Mouth: Normal Inspection, Normal Lips, Normal Teeth, Normal Gums, Normal Oropharynx, Normal Voice, No Airway Compromise Head: Atraumatic, Normocephalic Neck: Normal Inspection, Supple, Full Range of Motion. No: Tender Lateral, Tender Midline Respiratory/Chest: No Respiratory Distress, Lungs Clear, Normal Breath Sounds, No Accessory Muscle Use Cardiovascular: Regular Rate, Rhythm, No Edema, No Murmur Peripheral Pulses: 2+: Dorsalis Pedis (L), Dorsalis Pedis (R) GI/Abdominal: Normal Bowel Sounds, Soft, Non-Tender, No Organomegaly Back Exam: Vertebral Tenderness (L2-L3 area) Extremities: No Pedal Edema, Leg Pain (deficit to right achilles), Limited Range of Motion (dorsiflexion of right foot) Neurological: Alert, Oriented, CN II-XII Intact, Normal Cognition, No Motor/Sensory Deficits Psychiatric: Normal Affect, Normal Mood Skin Exam: Warm, No Rash, Wound/Incision (superficial contusion to right elbow, right knee) Course - Vital Signs Last Recorded V/S: Last Vital Signs Temp 97.8 F 10/14/20 15:15 Pulse 85 10/14/20 15:15 Resp 20 10/14/20 15:15 BP 135/75 10/14/20 15:15 Pulse Ox 98 10/14/20 15:15 - Orders/Labs/Meds Orders: Active Orders 24 hr Category Date Time Status Ankle 2V Rt [CR] Stat Exams 10/14/20 15:36 Taken Elbow Min 3V Rt [CR] Stat Exams 10/14/20 15:36 Taken Hip Min 2V or 3V w Pelvis Rt [CR] Stat Exams 10/14/20 15:36 Taken Lumbar Spine wo Cont [CT] Stat Exams 10/14/20 15:36 Taken Wrist Comp Min 3V Lt [CR] Stat Exams 10/14/20 15:36 Taken Meds: Medications Discontinued Medications Generic Name Dose Route Start Last Admin Trade Name Annmarie PRN Reason Stop Dose Admin Fentanyl 50 mcg 10/14/20 16:30 Fentanyl 50 Mcg/Ml Sdv IVPUSH 10/14/20 16:31 ONETIME ONE Morphine Sulfate 4 mg 10/14/20 15:38 10/14/20 15:44 Morphine 4 Mg/Ml Vial IVPUSH 10/14/20 15:39 4 mg ONETIME ONE Administration Departure - Departure Time of Disposition: 17:08 Disposition: Home, Self-Care 01 Clinical Impression: Pain in left wrist, Abrasion, elbow w/o infection, Pain in right hip, Low back pain Achilles rupture, right Qualifiers: Encounter type: initial encounter Qualified Code(s): S86.011A - Strain of right Achilles tendon, initial encounter Contusion of knee, right Qualifiers: Encounter type: initial encounter Qualified Code(s): S80.01XA - Contusion of right knee, initial encounter - Discharge Information *PRESCRIPTION DRUG MONITORING PROGRAM REVIEWED*: No *COPY OF PRESCRIPTION DRUG MONITORING REPORT IN PATIENT HANNAH: No Instructions: Achilles Tendon Tear, Abrasion, Contusion Referrals: Tong Langley PA-C [Primary Care Provider] - Forms: ED Department Discharge Additional Instructions: 1) Fay 5/325 - 1 to 2 tablets every 6 hours as needed for pain 2) Rest 3) Keep abrasion to right elbow and knee clean and dry 4) Cam Walker to be worn consistently. May remove to ice 20 minutes at a time 5) Non weight bearing ( crutches or scooter) for ambulation, do not bear weight 5) Will set up with orthopedics in [place] for evaluation 6) May use ibuprofen, as directed on bottle, for inflammation/pain 7) Follow up if any concerns. Sepsis Event Note (ED) - Evaluation Sepsis Screening Result: No Definite Risk - Focused Exam Vital Signs: Vital Signs Temp Pulse Resp BP Pulse Ox 10/14/20 15:15 97.8 F 85 20 135/75 98 - Problem List & Annotations (1) Abrasion, elbow w/o infection SNOMED Code(s): 13246653 Code(s): S50.319A - ABRASION OF UNSPECIFIED ELBOW, INITIAL ENCOUNTER Status: Acute Current Visit: Yes (2) Achilles rupture, right SNOMED Code(s): 87481197102822148 Code(s): S86.011A - STRAIN OF RIGHT ACHILLES TENDON, INITIAL ENCOUNTER Status: Acute Current Visit: Yes Qualifiers: Encounter type: initial encounter Qualified Code(s): S86.011A - Strain of right Achilles tendon, initial encounter (3) Contusion of knee, right SNOMED Code(s): 56653435 Code(s): S80.01XA - CONTUSION OF RIGHT KNEE, INITIAL ENCOUNTER Status: Acute Current Visit: Yes Qualifiers: Encounter type: initial encounter Qualified Code(s): S80.01XA - Contusion of right knee, initial encounter (4) Low back pain SNOMED Code(s): 971772940 Code(s): M54.5 - LOW BACK PAIN Status: Acute Current Visit: Yes Qualifiers: Chronicity: chronic Back pain laterality: midline Sciatica presence: without sciatica Qualified Code(s): M54.5 - Low back pain; G89.29 - Other chronic pain (5) Pain in left wrist SNOMED Code(s): 89266885 Code(s): M25.532 - PAIN IN LEFT WRIST Status: Acute Current Visit: Yes (6) Pain in right hip SNOMED Code(s): 38524626 Code(s): M25.551 - PAIN IN RIGHT HIP Status: Acute Current Visit: Yes - My Orders Last 24 Hours: My Active Orders 10/14/20 15:36 Ankle 2V Rt [CR] Stat Elbow Min 3V Rt [CR] Stat Hip Min 2V or 3V w Pelvis Rt [CR] Stat Lumbar Spine wo Cont [CT] Stat Wrist Comp Min 3V Lt [CR] Stat - Assessment/Plan Last 24 Hours: My Active Orders 10/14/20 15:36 Ankle 2V Rt [CR] Stat Elbow Min 3V Rt [CR] Stat Hip Min 2V or 3V w Pelvis Rt [CR] Stat Lumbar Spine wo Cont [CT] Stat Wrist Comp Min 3V Lt [CR] Stat Plan: Patient had multiple x-rays with no acute findings. Minimal pain improvement with Morphine, patient was given IV Fentanyl. Prescription for Fay given prior to discharge. Patient placed in Cam Walker with relief to right lower extremity. See additional instructions.
== END 2020-10-14 17:40 | disposition home or self-care (01) ==
LOC: CC.ED 15:13
DX: S86.011A Strain of right Achilles tendon, initial encounter (principal); S80.01XA Contusion of right knee, initial encounter; S50.01XA Contusion of right elbow, initial encounter; M25.532 Pain in left wrist; M25.551 Pain in right hip; M54.5 Low back pain; Z88.1 Allergy status to other antibiotic agents; Z88.0 Allergy status to penicillin; Z79.899 Other long term (current) drug therapy; W10.9XXA Fall (on) (from) unspecified stairs and steps, initial encounter
CPT/HCPCS: 72131; 73080; 73110; 73502; 73600; 96374; 96375; 99285; J2270; J3010

== ENCOUNTER 2020-11-07 21:44 | Emergency (ER) | payer OTHER, BC ==
[2020-11-07 21:47] VITALS: BP 123/86; PULSE 96
[2020-11-07 22:20] LABS: CHLORIDE,CL 101 mEq/L (98-106); SODIUM,NA 140 mEq/L (136-145)
--- NOTE | 2020-11-07 22:30 | EDM.PDOC ---
ED HPI GENERAL MEDICAL PROBLEM - General Chief Complaint: General Stated Complaint: ? post surgical infection Time Seen by Provider: 11/07/20 22:14 Source of Information: Reports: Patient History Limitations: Reports: No Limitations - History of Present Illness INITIAL COMMENTS - FREE TEXT/NARRATIVE: This patient is a 45 year old female that presents to the ER. Patient reports that she had achilles tendon repair to the right. She reports having repair on October [address] Lindsey. Patient reports that she saw Dr. Lindsey on Tuesday and the wound looked fine, but he wanted to leave some sutures in towards the bottom so it would not open up per patient. The patient reports that started 2 days ago having drainage to the distal part of the wound with dressings that have a brown/yellow/red color per patient. Patient denies redness, vomiting, fever, increase in pain. Denies increase in calf pain. The patients reports she has another upcoming appointment Tuesday. Onset Date: 11/05/20 Duration: Day(s): (2) Location: Reports: Lower Extremity, Right Front/Back Body Image: 1 - surgical incision 2 - scant drainage Severity: Mild Improves with: Reports: None Worsens with: Reports: None Associated Symptoms: Reports: Nausea/Vomiting (nausea, but no vomiting). Denie s: Confusion, Chest Pain, Diaphoresis, Fever/Chills, Headaches, Malaise, Rash, Seizure, Shortness of Breath, Weakness Right Ankle Pain Score (Numeric/FACES): 7 - Related Data Allergies Allergy/AdvReac Type Severity Reaction Status Date / Time ampicillin Allergy Diarrhea Verified 11/07/20 21:48 levofloxacin [From Levaquin] Allergy Anaphylactic Verified 10/14/20 16:12 Shock metronidazole [From Flagyl] Allergy Cannot Verified 10/14/20 16:12 Remember Metronidazole HCl Allergy Cannot Verified 10/14/20 16:12 [From Flagyl] Remember amoxicillin AdvReac Diarrhea Verified 10/14/20 16:12 Home Meds: Home Meds Cholecalciferol (Vitamin D3) [Vitamin D3] 5,000 unit PO DAILY 04/24/14 [History] Cyclobenzaprine [Flexeril] 10 mg PO TID PRN 09/20/13 [History] Furosemide 40 mg PO BID 09/20/13 [History] clonazePAM [Clonazepam] 1 mg PO BEDTIME 09/20/13 [History] Estradiol [Estrace] 2 mg PO DAILY 02/03/17 [History] Potassium Chloride 20 meq PO DAILY 02/03/17 [History] Butalb/Acetaminophen/Caffeine [Fleorp-Gtrsludl-Koyj 50-300-40] 1 each PO ASDIRECTED PRN 01/03/18 [History] DULoxetine [Cymbalta] 60 mg PO DAILY 04/06/19 [History] Ondansetron [Ondansetron ODT] 4 mg SL Q6HR PRN 02/15/20 [History] Acetaminophen/oxyCODONE [Percocet 325-5 MG] 1 tab PO Q6H PRN #8 tablet 06/19/20 [Rx] Sulfamethoxazole/Trimethoprim [Bactrim Ds Tablet] 1 each PO BID 5 Days #10 tablet 11/07/20 [Rx] oxyCODONE 5 - 10 mg PO Q12HR PRN 11/07/20 [History] Past Medical History Gastrointestinal History: Reports: GERD Genitourinary History: Reports: Renal Calculus 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: Endometriosis Musculoskeletal History: Reports: Arthritis, Back Pain, Chronic, Osteoarthritis Neurological History: Reports: Migraines Psychiatric History: Reports: Anxiety, Depression - Infectious Disease History Infectious Disease History: Reports: Novel Coronavirus - Past Surgical History HEENT Surgical History: Reports: Naso-Sinus Surgery GI Surgical History: Reports: Cholecystectomy Female Surgical History: Reports: Hysterectomy, Other (See Below) Other Female Surgeries/Procedures: lithotripsy for kidney stones Musculoskeletal Surgical History: Reports: Arthroscopic Knee, Joint Replacement, Other (See Below) Other Musculoskeletal Surgeries/Procedures:: L knee replacement; R achilles tendon repair Social & Family History - Family History Family Medical History: No Pertinent Family History - Tobacco Use Tobacco Use Status *Q: Current Some Day Tobacco User Years of Tobacco use: 1 Packs/Tins Daily: 0 - Caffeine Use Caffeine Use: Reports: Soda - Recreational Drug Use Recreational Drug Use: No - Living Situation & Occupation Living situation: Reports: Occupation: Employed ED ROS GENERAL - Review of Systems Review Of Systems: See Below Constitutional: Reports: No Symptoms. Denies: Fever, Chills, Malaise, Fatigue, Diaphoresis HEENT: Reports: No Symptoms Respiratory: Reports: No Symptoms Cardiovascular: Reports: No Symptoms Endocrine: Reports: No Symptoms GI/Abdominal: Reports: Nausea. Denies: Abdominal Pain, Diarrhea, Vomiting : Reports: No Symptoms Musculoskeletal: Reports: Leg Pain (Right at incisional site. No increase in pain.) Skin: Reports: Wound (surgical wound distal posterior achilles with drainage th at is yellow/brown/red color) Neurological: Reports: No Symptoms Psychiatric: Reports: No Symptoms Hematologic/Lymphatic: Reports: No Symptoms Immunologic: Reports: No Symptoms ED EXAM, GENERAL - Physical Exam Exam: See Below Exam Limited By: No Limitations General Appearance: Alert, WD/WN, No Apparent Distress Respiratory/Chest: No Respiratory Distress, Lungs Clear, Normal Breath Sounds, No Accessory Muscle Use Cardiovascular: Normal Peripheral Pulses, Regular Rate, Rhythm, No Edema, No Gallop, No JVD, No Murmur, No Rub Peripheral Pulses: 2+: Popliteal (L), Popliteal (R), Posterior Tibial (L), Posterior Tibial (R), Dorsalis Pedis (R) Extremities: Normal Range of Motion, Normal Capillary Refill. No: Slow Capillary Refill, Limited Range of Motion, Increased Warmth, Redness Neurological: Alert, Oriented Psychiatric: Normal Affect, Normal Mood Skin Exam: Warm, Dry, Normal Color, Wound/Incision (distal dorsal achilles, with scant drainage purulent drainage. ). No: Erythema, Increased Warmth Lymphatic: No Adenopathy Course - Vital Signs Last Recorded V/S: Last Vital Signs Temp 97.6 F 11/07/20 21:45 Pulse 96 11/07/20 21:45 Resp 16 11/07/20 21:45 BP 123/86 11/07/20 21:45 Pulse Ox 99 11/07/20 21:45 - Orders/Labs/Meds Orders: Active Orders 24 hr Category Date Time Status CULTURE WOUND [RM] Stat Lab 11/07/20 21:58 Received Labs: Laboratory Tests 11/07/20 11/07/20 Range/Units 21:58 21:58 WBC 5.5 (4.0-11.0) 10^3/uL RBC 4.56 (4.00-5.50) x10^6/uL Hgb 12.9 (12.0-16.0) g/dL Hct 38.6 (37.0-47.0) % MCV 84.6 (83.0-97.0) fL MCH 28.3 (27.0-32.0) pg MCHC 33.4 (32.0-36.0) g/dL RDW Coeff of Anupama 12.6 (11.0-15.0) % Plt Count 184 (150-400) 10^3/uL Immature Gran % (Auto) 0.4 (0.0-4.9) % Neut % (Auto) 37.8 L (41-71) % Lymph % (Auto) 49.8 H (24-44) % [place] % (Auto) 9.7 (0-10) % Eos % (Auto) 1.6 (0-6) % Baso % (Auto) 0.7 (0-1) % Neut # (Auto) 2.09 (1.80-8.00) x10^3/uL Lymph # (Auto) 2.76 (0.60-5.00) 10^3/uL [place] # (Auto) 0.54 (0.00-1.50) 10^3/uL Eos # (Auto) 0.09 (0.00-1.50) 10^3/uL Baso # (Auto) 0.04 (0.00-0.50) 10^3/uL Immature Gran # (Auto) 0.02 (0.00-0.49) 10^3/uL Sodium 140 (136-145) mEq/L Potassium 3.4 L (3.5-5.0) mEq/L Chloride 101 (98-106) mEq/L Carbon Dioxide 28 (21-32) mmol/L BUN 13 (7-18) mg/dL Creatinine 0.8 (0.6-1.0) mg/dL Est Cr Clr Drug Dosing 83.13 mL/min Estimated GFR (MDRD) > 60 (>=60) mL/min Glucose 124 H (75-99) mg/dL Calcium 8.3 L (8.4-10.1) mg/dL - Re-Assessments/Exams Free Text/Narrative Re-Assessment/Exam: 11/07/20 22:38 I called [facility] and the have informed my that there is no orthopedic engineering documentation specialist this weekend. They have given me Dr. Lindsey phone number, but report he may not answer. I did call the number, it goes straight to voicemail, I left message. 11/07/20 22:52 I called [facility], they will call me back once podiatry is available. 11/07/20 22:56 I spoke with Podiatry engineering documentation specialist Dr. Harper at [facility]. He reports based clinically, drainage could be just fat, not infectious. He reports have patient wash the wound daily, apply antibiotic ointment, dry dressing. Could go ahead and place on Bactrim for 5 days and have her f/u with surgeon Tuesday. Departure - Departure Time of Disposition: 23:10 Disposition: Home, Self-Care 01 Condition: Fair Clinical Impression: Drainage from surgical wound - Discharge Information *PRESCRIPTION DRUG MONITORING PROGRAM REVIEWED*: Not Applicable *COPY OF PRESCRIPTION DRUG MONITORING REPORT IN PATIENT HANNAH: Not Applicable Prescriptions: Sulfamethoxazole/Trimethoprim [Bactrim Ds Tablet] 1 each PO BID 5 Days #10 tablet Instructions: Wound Infection, [id number] Referrals: Tootie Roldan PA [Primary Care Provider] - Forms: ED Department Discharge Additional Instructions: Followup with your surgeon as scheduled Return to the ER for worsening of condition or any other emergencies I called and consulted with Dr. Harper Podiatry at [facility] about your care tonight. [facility] does not currently have orthopedic engineering documentation specialist. Bactrim DS 1 pill twice a day for 5 days #10 no refill, take until gone. Stay out of sun. Sepsis Event Note (ED) - Evaluation Sepsis Screening Result: No Definite Risk - Focused Exam Vital Signs: Vital Signs Temp Pulse Resp BP Pulse Ox 11/07/20 21:45 97.6 F 96 16 123/86 99 - My Orders Last 24 Hours: My Active Orders 11/07/20 21:58 CULTURE WOUND [RM] Stat - Assessment/Plan Last 24 Hours: My Active Orders 11/07/20 21:58 CULTURE WOUND [RM] Stat Plan: PLEASE SEE RN NOTE FOR PFSH
[2020-11-07] MEDS ORDERED: Sulfamethoxazole/Trimethoprim 800-160 MG Tab PO ONE (23:12)
== END 2020-11-07 23:23 | disposition home or self-care (01) ==
LOC: CC.ED 21:44
DX: T81.40XA Infection following a procedure, unspecified, initial encounter (principal); Z72.0 Tobacco use; Z88.0 Allergy status to penicillin; Z88.1 Allergy status to other antibiotic agents; Z86.16 Personal history of COVID-19
CPT/HCPCS: 36415; 80048; 85025; 87070; 99283; A9270

== ENCOUNTER 2023-02-19 21:00 | Emergency (ER) | payer MEDICAID ==
[2023-02-19] MEDS: HYDROmorphone 1 MG/ML Syringe SUBCUT ONE (21:22)
[2023-02-19] MEDS: HYDROmorphone 2 MG Tab PO STA (21:41)
[2023-02-19 22:23] VITALS: BP 125/70; PULSE 78
== END 2023-02-19 22:05 | disposition home or self-care (01) ==
LOC: CC.ED 21:00
DX: G89.18 Other acute postprocedural pain (principal); M79.671 Pain in right foot; Z86.16 Personal history of COVID-19; Z77.22 Contact with and (suspected) exposure to environmental tobacco smoke (acute) (chronic); Z88.1 Allergy status to other antibiotic agents; Z88.0 Allergy status to penicillin; Z79.899 Other long term (current) drug therapy
CPT/HCPCS: 96372; 99283; 99284; A9270-GY; J1170

== ENCOUNTER 2023-02-20 04:09 | Observation (INO) | payer MEDICAID ==
[2023-02-20] MEDS ORDERED: HYDROmorphone 1 MG/ML Syringe IVPUSH ONE (04:19)
[2023-02-20 05:17] LABS: BASOPHILS ABSOLUTE AUTO 0.01 10^3/uL (0.00-0.50); BASOPHILS PERCENT AUTO 0.1 % (0-1); EOSINOPHILS ABSOLUTE AUTO 0.05 10^3/uL (0.00-1.50); EOSINOPHILS PERCENT AUTO 0.5 % (0-6); HEMATOCRIT 36.4 % (37.0-47.0); IMMATURE GRAN ABSOLUTE AUTO 0.01 10^3/uL (0.00-0.49); IMMATURE GRAN PERCENT AUTO 0.1 % (0.0-4.9); LYMPHOCYTES ABSOLUTE AUTO 3.69 10^3/uL (0.60-5.00); LYMPHOCYTES PERCENT AUTO 39.8 % (24-44); MEAN CORPUSCULAR HEMOGLOBIN 29.1 pg (27.0-32.0); MEAN CORPUSCULAR VOLUME 88.1 fL (83.0-97.0); MONOCYTES ABSOLUTE AUTO 0.64 10^3/uL (0.00-1.50); MONOCYTES PERCENT AUTO 6.9 % (0-10); NEUTROPHILS ABSOLUTE AUTO 4.88 x10^3/uL (1.80-8.00); NEUTROPHILS PERCENT AUTO 52.6 % (41-71); PLATELET COUNT,PLT 282 10^3/uL (150-400); RED BLOOD CELL COUNT 4.13 x10^6/uL (4.00-5.50); WHITE BLOOD CELL COUNT,WBC 9.3 10^3/uL (4.0-11.0)
[2023-02-20 05:29] LABS: ALBUMIN 3.1 g/dL (3.4-5.0); BILIRUBIN TOTAL 0.3 mg/dL (0.0-1.0); CALCIUM 8.4 mg/dL (8.4-10.1); CREATININE 0.8 mg/dL (0.6-1.0); EST CRCL DRUG DOSING (CG) 81.38 mL/min; POTASSIUM,K 3.8 mEq/L (3.5-5.0); PROTEIN TOTAL,TP 6.8 g/dL (6.4-8.2)
[2023-02-20] MEDS ORDERED: Acetaminophen/oxyCODONE 325-5 MG Tab PO STA (05:29)
[2023-02-20] MEDS ORDERED: Naloxone 2 MG/2 ML Syringe IVPUSH PRN (05:30)
[2023-02-20] MEDS ORDERED: Polyethylene Glycol 3350 Powder 17 GM Packet PO PRN (05:45)
[2023-02-20] MEDS ORDERED: Ondansetron 4 MG/2 ML SDV IV PRN (05:45)
[2023-02-20] MEDS ORDERED: Ibuprofen 200 MG Tab PO PRN (05:45)
[2023-02-20] MEDS ORDERED: Ondansetron 4 MG Tab.DIS PO PRN (05:45)
[2023-02-20] MEDS ORDERED: Cyclobenzaprine 10 MG Tab PO PRN (05:46)
[2023-02-20] MEDS: DULoxetine 30 MG Cap PO SCH (07:24)
[2023-02-20] MEDS: Estradiol 1 MG Tab PO SCH (07:25)
[2023-02-20] MEDS: Potassium Chloride 10 MEQ Tab.ER PO SCH (07:25)
[2023-02-20] MEDS: Furosemide 40 MG Tab PO SCH ×2 (07:25→15:39)
[2023-02-20] MEDS: Acetaminophen 325 MG Tab PO SCH ×3 (07:26→19:56)
[2023-02-20] MEDS: Cholecalciferol (Vitamin D3) 5,000 UNIT Tab PO SCH (07:26)
[2023-02-20] MEDS: HYDROmorphone 1 MG/ML Syringe IVPUSH PRN ×4 (07:27→23:48)
[2023-02-20] MEDS: Acetaminophen/oxyCODONE 325-5 MG Tab PO PRN ×2 (09:55→18:11)
[2023-02-20] MEDS ORDERED: Enoxaparin 40 MG/0.4 ML Syringe SUBCUT SCH (20:00)
[2023-02-20] MEDS ORDERED: ClonazePAM 1 MG Tab PO SCH (20:00)
[2023-02-21] MEDS: HYDROmorphone 1 MG/ML Syringe IVPUSH PRN (06:38)
[2023-02-21 07:31] LABS: BASOPHILS ABSOLUTE AUTO 0.03 10^3/uL (0.00-0.50); BASOPHILS PERCENT AUTO 0.4 % (0-1); EOSINOPHILS PERCENT AUTO 1.3 % (0-6); HEMATOCRIT 37.6 % (37.0-47.0); HEMOGLOBIN 12.4 g/dL (12.0-16.0); IMMATURE GRAN ABSOLUTE AUTO 0.01 10^3/uL (0.00-0.49); IMMATURE GRAN PERCENT AUTO 0.1 % (0.0-4.9); LYMPHOCYTES ABSOLUTE AUTO 2.67 10^3/uL (0.60-5.00); LYMPHOCYTES PERCENT AUTO 35.9 % (24-44); MEAN CORPUSCULAR HEMOGLOBIN 29.2 pg (27.0-32.0); MEAN CORPUSCULAR VOLUME 88.7 fL (83.0-97.0); MONOCYTES ABSOLUTE AUTO 0.58 10^3/uL (0.00-1.50); MONOCYTES PERCENT AUTO 7.8 % (0-10); NEUTROPHILS ABSOLUTE AUTO 4.04 x10^3/uL (1.80-8.00); NEUTROPHILS PERCENT AUTO 54.5 % (41-71); PLATELET COUNT,PLT 305 10^3/uL (150-400); RED BLOOD CELL COUNT 4.24 x10^6/uL (4.00-5.50); WHITE BLOOD CELL COUNT,WBC 7.4 10^3/uL (4.0-11.0)
[2023-02-21 07:35] LABS: CALCIUM 8.3 mg/dL (8.4-10.1); CREATININE 0.7 mg/dL (0.6-1.0); EST CRCL DRUG DOSING (CG) 93.01 mL/min; POTASSIUM,K 3.8 mEq/L (3.5-5.0)
[2023-02-21] MEDS: DULoxetine 30 MG Cap PO SCH (07:51)
[2023-02-21] MEDS: Cholecalciferol (Vitamin D3) 5,000 UNIT Tab PO SCH (07:51)
[2023-02-21] MEDS: Estradiol 1 MG Tab PO SCH (07:51)
[2023-02-21] MEDS: Acetaminophen 325 MG Tab PO SCH (07:51)
[2023-02-21] MEDS: Potassium Chloride 10 MEQ Tab.ER PO SCH (07:51)
[2023-02-21] MEDS: Furosemide 40 MG Tab PO SCH (07:52)
[2023-02-21] MEDS ORDERED: Ketorolac 30 MG/ML SDV IVPUSH ONE (10:09)
[2023-02-21 11:07] VITALS: BP 120/69; PULSE 74
== END 2023-02-21 10:55 | disposition home or self-care (01) ==
LOC: CC.ED 04:09 → UNDOADMOB 04:55 → CC.MS 04:55
PROVIDERS: ADMIT Nurse Practitioner Family; ATTEND Nurse Practitioner Family
DX: G89.18 Other acute postprocedural pain (principal); M79.671 Pain in right foot; K21.9 Gastro-esophageal reflux disease without esophagitis; M19.90 Unspecified osteoarthritis, unspecified site; G43.909 Migraine, unspecified, not intractable, without status migrainosus; F41.9 Anxiety disorder, unspecified; F32.A Depression, unspecified; Z88.0 Allergy status to penicillin; Z88.1 Allergy status to other antibiotic agents; Z88.8 Allergy status to other drugs, medicaments and biological substances; Z79.899 Other long term (current) drug therapy; Z87.891 Personal history of nicotine dependence
CPT/HCPCS: 36415; 80048; 80053; 85025; 96372; 96374; 96375; 96376; 99284-25; A9270-GY; G0378; J1170; J1650; J1885

== ENCOUNTER 2025-01-18 10:04 | Day surgery (SDC) | payer MEDICAID, MEDICARE ==
[2025-01-18] MEDS: Lactated Ringers 1,000 ML IV SCH (10:19)
[2025-01-18] MEDS ORDERED: Ketamine 200 MG/20 ML MDV ONE (10:35)
[2025-01-18] MEDS ORDERED: Midazolam 1 MG/ML 2 ML SDV ONE (10:35)
[2025-01-18] MEDS ORDERED: Propofol 200 MG/20 ML SDV ONE (10:35)
[2025-01-18] MEDS ORDERED: fentaNYL 50 MCG/ML SDV ONE (10:35)
[2025-01-18 11:28] VITALS: BP 135/71; PULSE 66
== END 2025-01-18 11:38 | disposition home or self-care (01) ==
LOC: CC.SDS 10:04
PROVIDERS: ATTEND Family Medicine
DX: K29.70 Gastritis, unspecified, without bleeding (principal); K21.00 Gastro-esophageal reflux disease with esophagitis, without bleeding; K44.9 Diaphragmatic hernia without obstruction or gangrene; F41.9 Anxiety disorder, unspecified; E66.9 Obesity, unspecified; Z68.34 Body mass index [BMI] 34.0-34.9, adult; Z88.8 Allergy status to other drugs, medicaments and biological substances; Z79.899 Other long term (current) drug therapy
CPT/HCPCS: 00731; 43239; 88305; J2003; J2250; J2704; J3010; J3490; J7120

== ENCOUNTER 2025-01-29 22:35 | Emergency (ER) | payer MEDICARE ==
[2025-01-29 23:08] LABS: APPEARANCE,URINE CLEAR (CLEAR); GLUCOSE,URINE NEGATIVE (NEGATIVE); OCCULT BLOOD,URINE NEGATIVE (NEGATIVE)
[2025-01-29 23:15] VITALS: BP 143/71; PULSE 81
[2025-01-29 23:16] LABS: BASOPHILS ABSOLUTE AUTO 0.03 10^3/uL (0.00-0.50); BASOPHILS PERCENT AUTO 0.4 % (0-1); EOSINOPHILS ABSOLUTE AUTO 0.15 10^3/uL (0.00-1.50); EOSINOPHILS PERCENT AUTO 2.2 % (0-6); IMMATURE GRAN ABSOLUTE AUTO 0.02 10^3/uL (0.00-0.49); IMMATURE GRAN PERCENT AUTO 0.3 % (0.0-4.9); LYMPHOCYTES ABSOLUTE AUTO 1.08 10^3/uL (0.60-5.00); LYMPHOCYTES PERCENT AUTO 16.2 % (24-44); MONOCYTES ABSOLUTE AUTO 0.53 10^3/uL (0.00-1.50); MONOCYTES PERCENT AUTO 7.9 % (0-10); NEUTROPHILS ABSOLUTE AUTO 4.87 x10^3/uL (1.80-8.00); NEUTROPHILS PERCENT AUTO 73.0 % (41-71); PLATELET COUNT,PLT 214 10^3/uL (150-400); RED BLOOD CELL COUNT 4.15 x10^6/uL (4.00-5.50); WHITE BLOOD CELL COUNT,WBC 6.7 10^3/uL (4.0-11.0)
[2025-01-29 23:29] LABS: ALANINE AMINOTRANSFERASE,ALT 33 U/L (12-78); ASPARTATE AMNIOTRANSFERASE,AST 19 U/L (15-37); BILIRUBIN TOTAL 0.3 mg/dL (0.0-1.0); BLOOD UREA NITROGEN,BUN 16 mg/dL (7-18); CARBON DIOXIDE,CO2 29 mmol/L (21-32); CHLORIDE,CL 97 mEq/L (98-106); CREATININE 0.9 mg/dL (0.6-1.0); EST CRCL DRUG DOSING (CG) 70.78 mL/min; GLUCOSE RANDOM 118 mg/dL (75-99); POTASSIUM,K 3.4 mEq/L (3.5-5.0); PROTEIN TOTAL,TP 6.5 g/dL (6.4-8.2); SODIUM,NA 130 mEq/L (136-145)
[2025-01-29 23:30] LABS: ESTIMATED GFR 78 mL/min (>=60)
[2025-01-29] MEDS: Ondansetron 4 MG/2 ML SDV IVPUSH STA (23:31)
[2025-01-29] MEDS: Ketorolac 30 MG/ML SDV IVPUSH ONE (23:31)
== END 2025-01-30 01:14 | disposition home or self-care (01) ==
LOC: CC.ED 22:35
DX: J32.9 Chronic sinusitis, unspecified (principal); M54.9 Dorsalgia, unspecified; Z90.49 Acquired absence of other specified parts of digestive tract; Z90.710 Acquired absence of both cervix and uterus; Z88.0 Allergy status to penicillin; Z88.8 Allergy status to other drugs, medicaments and biological substances; Z79.899 Other long term (current) drug therapy
CPT/HCPCS: 36415; 74176; 80053; 81003; 83690; 85025; 86140; 96374; 96375; 99284; 99284-25; A9270-GY; J1171; J1885; J2405; J7030